=== PATIENT | male | born 1970 | race African-American/Black ===

== ENCOUNTER 2017-09-07 00:03 | Inpatient (IN) | payer MEDICAID, OTHER ==
[2017-09-07 00:31] LABS: Sodium 134 mmol/L (135-148)
[2017-09-07 00:32] LABS: Modified Allen's Test POSITIVE; Vent NO
[2017-09-07] MEDS ORDERED: Naloxone HCl 2 mg/2 ml Syringe ONE (01:22)
[2017-09-07 01:38] LABS: PTT 41.5 SEC (22.9-36.1); Prothrombin Time 19.1 SEC (12.0-14.7)
[2017-09-07 01:51] LABS: CK (CPK) 25 U/L (30-200); Lipase 37 U/L (8-78)
[2017-09-07 01:55] LABS: Troponin I 0.049 ng/mL (< 0.028)
[2017-09-07 02:01] LABS: Hematocrit 8.6 % (42.0-52.0)
[2017-09-07 02:07] LABS: Lactic Acid - Sepsis 8.8 mmol/L (0.5-2.2)
[2017-09-07 02:12] LABS: ALT (SGPT) Less than 7 U/L (8-55); AST (SGOT) 10 U/L (5-34); Acetaminophen Less than 6.0 mcg/mL (10.0-30.0); Alkaline Phosphatase 84 U/L (40-150); Anion Gap 23 mmol/L (10-20); BUN (Urea Nitrogen) 62 mg/dL (8.9-20.6); Bilirubin, Total 0.3 mg/dL (0.2-1.2); Calc. Creatinine Clearance 0 mL/min (70-130); Calcium 7.2 mg/dL (7.8-10.44); Carbon Dioxide 15 mmol/L (22-29); Chloride 101 mmol/L (98-107); Estimated GFR-MDRD 11; Globulin 3.4 g/dL (2.4-3.5); Protein, Total 5.2 g/dL (6.0-8.3); Salicylate Less than 8.0 mg/dL (15.0-30.0)
[2017-09-07 02:34] LABS: Band 8 % (5-11); Hypochromia MODERATE=16-30 cells (100X) (0-5/hpf); Mean Platelet Volume 8.5 fL (7.4-10.4); Neutrophil 69 % (42-75); Red Blood Cell (RBC) Count 1.12 mill/uL (4.70-6.10); White Blood Cell (WBC) Count 10.6 thou/uL (4.8-10.8)
[2017-09-07] MEDS ORDERED: Furosemide 40 MG/4 ML VIAL ONE (03:20)
[2017-09-07] MEDS ORDERED: Ondansetron ODT 4 MG TAB SL PRN (04:01)
[2017-09-07] MEDS ORDERED: Ondansetron HCl/PF 4 MG/2 ML Vial IVP PRN ×2 (04:01→04:36)
[2017-09-07] MEDS ORDERED: Acetaminophen 500 MG TAB PO PRN (04:36)
[2017-09-07] MEDS ORDERED: hydrALAZINE 20 MG/ML VIAL SLOW IVP PRN (04:36)
[2017-09-07] MEDS ORDERED: cloNIDine 0.1 MG TAB PO PRN (04:36)
[2017-09-07 05:20] VITALS: BMI 27.4
[2017-09-07 05:44] LABS: Lactic Acid - Sepsis 6.2 mmol/L (0.5-2.2)
[2017-09-07 05:49] LABS: Anion Gap 23 mmol/L (10-20); BUN (Urea Nitrogen) 64 mg/dL (8.9-20.6); Calc. Creatinine Clearance 16 mL/min (70-130); Calcium 7.1 mg/dL (7.8-10.44); Carbon Dioxide 15 mmol/L (22-29); Chloride 101 mmol/L (98-107); Estimated GFR-MDRD 11
[2017-09-07 06:38] LABS: Hematocrit 12.2 % (42.0-52.0); Mean Platelet Volume 9.1 fL (7.4-10.4); Red Blood Cell (RBC) Count 1.51 mill/uL (4.70-6.10); White Blood Cell (WBC) Count 9.2 thou/uL (4.8-10.8)
--- NOTE | 2017-09-07 06:40 | HP ---
DATE OF ADMISSION: 09/07/2017 PRIMARY CARE PHYSICIAN: [facility]. PRIMARY HEMATOLOGY TECHNICIAN: Dr. Augusta Coates. CHIEF COMPLAINT: Altered mental status. HISTORY OF PRESENT ILLNESS: This is a 47-year-old male who presents to [facility] after apparently family noted that the patient with altered mentation. Joby cam apparently woke up from sleeping for approximately 2320 hours with associated weakness and garble d speech. Patient and family members became concerned, notifying EMS personnel who arrived and note d the patient's blood pressure 90s/60s. Patient also has a significant history of status post ingui nal hernia repair on 08/15/2017, with some bleeding noted in the genitourinary region. Patient appa rently had noted increased swelling and worsening of bleeding, which previously had been hemostatic. The patient states he has been compliant with his dialysis sessions as he currently attends on Sun, Sunday, and Sunday. Patient denied any specific fever, chills, or exposure history. Anita vaca did not take any specific home remedies for his symptoms. In the emergency room, the patient unde rwent general evaluation receiving IV Lasix 80 mg x1 in addition to 1 unit of packed red blood cells after initial hemoglobin was noted at 2.5. The patient also received 2 mg Narcan and intravenous n ormal saline x1 liter. PAST MEDICAL HISTORY: 1. End-stage renal disease with current hemodialysis. 2. Medication noncompliance. 3. History of illicit drug use. 4. History of inguinal hernia. 5. Hypertension. 6. Chronic systolic and diastolic congestive heart failure with ejection fraction of 40% to 45%. 7. History of pneumonia. 8. Elevated troponin I. 9. Chronic microcytic anemia. PAST SURGICAL HISTORY: 1. Status post AV fistula placement. 2. Status post bilateral inguinal hernia repair on 08/15/2017. CURRENT MEDICATIONS: 1. Enteric coated aspirin 81 mg one tablet p.o. daily. 2. Ferrous sulfate 325 mg p.o. b.i.d. 3. Isosorbide mononitrate 30 mg p.o. daily. 4. Amlodipine 5 mg one tablet p.o. b.i.d. 5. Hydralazine 25 mg p.o. t.i.d. ALLERGIES: To tea. FAMILY HISTORY: Positive for hypertension. SOCIAL HISTORY: Patient with longstanding abuse of cocaine. Smokes cigarettes up to half a pack da shakir. No other illicit drug use noted. Occasional alcohol use. Patient resides in [place], [place]. REVIEW OF SYSTEMS: Unobtainable as patient with altered mentation and encephalopathy, unable to pro vide a coherent history. PHYSICAL EXAMINATION: VITAL SIGNS: On admission, blood pressure 83/57, pulse 84, respiratory rate 20, temperature 97.4 de grees Fahrenheit, O2 saturation 96% on 2 liters per minute by nasal cannula. GENERAL APPEARANCE: This is a 47-year-old male, lethargic, responds with garbled s peech to name and voice. HEENT EXAM: Pupils are equal, round, and reactive to light and accommodation. Extraocular muscles are intact. No scleral icterus, no conjunctival injection. Nares patent. OP is clear. Oral mucos a is dry appearing. NECK: Supple, no cervical adenopathy, no thyromegaly, no carotid bruits, no JVD appreciated. Cervi calli spine with full active and passive range of motion. CHEST: Diminished breath sounds in the bases bilaterally with transmitted central breath sounds per ipherally. CARDIOVASCULAR EXAM: S1 and S2 with tachycardia. ABDOMEN: Rounded, soft, nontender, and nondistended. Bowel sounds are positive in all four quadran ts. There is no hepatosplenomegaly, no abdominal bruits, no rebound or guarding appreciated. GENITOURINARY: Massive scrotal edema noted with loss of anatomical landmarks. EXTREMITIES: Warm and dry with fair turgor. No clubbing, cyanosis, or asymmetric edema appreciated . Pulses palpable distally at the dorsalis pedis, posterior tibial, and popliteal arteries bilatera lly. Capillary refill less than 2 seconds. NEUROLOGIC EXAM: Lethargic, minimally responsive to painful stimuli or voice. Garbled and dysarthr ic speech. Not observed ambulatory during this exam. PERTINENT LABORATORY DATA AND X-RAY FINDINGS: Sodium 135, potassium 4.2, chloride 101, CO2 of 15, a nion gap of 23, BUN 62, creatinine 6.91, estimated GFR of 11, glucose 103, lactic acid level 8.8, ca lcium 7.2. LFTs within normal limits. Serum ammonia level 79. Troponin I is 0.049. BNP is 4157, previously noted 1719. TSH 0.72. CBC showed a white blood cell count 7.6, hemoglobin 2.5, hematocr it 8.6, MCV 77, platelet count 308 with normal differential. PT 19.1, INR 1.6, PTT 41.5. ABG dated on 09/07/2017, showed a pH of 7.47, pCO2 of 20.8, pO2 of 118.3, bicarbonate 14.7 with O2 saturation 99% on room air. Telemetry monitoring shows sinus tachycardia with heart rates in the low 100s. C T of the brain without contrast dated on 09/07/2017, shows no acute intracranial process. Portable chest x-ray dated on 09/07/2017, by my interpretation shows prominent pulmonary vascular congestion. Cardiomegaly, AP projection. Tunneled hemodialysis catheter in place. No acute infiltrate identi fied. ASSESSMENT AND PLAN: 1. Acute encephalopathy. Suspect multifactorial including metabolic component with acute on chroni c microcytic anemia. Multiple metabolic derangements also noted including lactic acidosis hyperammo nemia and severe acute blood loss. We will continue symptomatic and supportive measures. Continue to monitor the mental status with daily assessment. 2. Acute on chronic microcytic anemia with acute blood loss. We will continue supportive measures. Transfuse 1 unit of packed red blood cells and repeat hemoglobin and hematocrit after completion. Consult General Surgery Service in the a.m. for evaluation. 3. Severe hypotension. We will continue to monitor blood pressure, trend and hold all antihyperten sive medications. Continue fluid management and monitor clinically. Overall, blood pressure trend improved with packed red blood cell transfusion x1. 4. End-stage renal disease with hemodialysis. We will consult Nephrology service for timing of the next hemodialysis session. 5. Scrotal hematoma. We will consult General Surgery Service in the a.m. for evaluation. Obtain t esticular ultrasound with Doppler study. 6. Lactic acidosis. Suspect secondarily to acute blood loss anemia and underlying metabolic proces s. Repeat lactic acid level per protocol. 7. Polysubstance abuse. We will continue to provide resources for abstinence. Consult case manage ment services. 8. Prophylaxis. Sequential compression devices while in bed. 9. Pepcid 20 mg IV every 12 hours. Consider PT evaluation for functional assessment. 10. Code status is FULL. Surrogate medical decision maker is the patient's mother.
[2017-09-07] MEDS ORDERED: Pantoprazole 40 MG VIAL IVP SCH (07:00)
[2017-09-07 07:10] LABS: Band 12 % (5-11); Hypochromia SLIGHT = 6-15 cells (100X) (0-5/hpf); Metamyelocyte 1 % (0-0); Myelocyte 1 % (0-0); Neutrophil 65 % (42-75); Nucleated RBC 1 % (0); Polychromasia MODERATE = 3-4 cells (100X) (0-2/hpf)
--- NOTE | 2017-09-07 07:41 | CT ---
PRELIMINARY REPORT/[facility]/EMERGENCY AFTER HOURS PROCEDURE: EXAM: CT Head Without Intravenous Contrast CLINICAL HISTORY: 47 years old, male; Signs and symptoms; Altered mental status/memory loss; Confusion or disorientati on; Patient HX: AMS TECHNIQUE: Axial computed tomography images of the head/brain without intravenous contrast. COMPARISON: No relevant prior studies available. FINDINGS: Brain: No acute findings. No hemorrhage. No significant white matter disease. No edema. Ventricles: No acute findings. No ventriculomegaly. Bones/joints: No acute findings. No acute fracture. Soft tissues: No acute findings. Sinuses: Unremarkable as visualized. No acute sinusitis. Mastoid air cells: Unremarkable as visualized. No mastoid effusion. IMPRESSION: No acute intracranial pathology. Thank you for allowing us to participate in the care of your patient. Dictated and Authenticated by: Zain Simpson MD 09/07/2017 2:46 AM Central Time ([place] \T\ [place]) FINAL REPORT CT BRAIN WITHOUT CONTRAST I agree with the preliminary report given by Dr. Zain Simpson of [facility]. POS: [facility]
--- NOTE | 2017-09-07 08:32 | RAD ---
SINGLE VIEW OF THE CHEST: HISTORY: Central line placement. COMPARISON: 09/07/2017 at 12:26 a.m. FINDINGS: A single view of the chest shows an enlarged but stable cardiomediastinal silhouette. A new right I J central venous catheter is seen with its tip in the right ventricle. The dialysis catheter is unc hanged in position. There is no evidence of pneumothorax, consolidation, mass, or pleural effusion. IMPRESSION: 1. Cardiomegaly. 2. Status post central line placement without evidence of pneumothorax. POS: [facility]
--- NOTE | 2017-09-07 08:33 | RAD ---
SINGLE VIEW OF THE CHEST: HISTORY: Altered mental status and hemorrhage. COMPARISON: 08/15/2016 FINDINGS: A single view of the chest shows an enlarged cardiomediastinal silhouette. There is a dialysis cath eter with its tip in the superior vena cava. No pneumothorax is seen. There is no evidence of cons olidation, mass, or pleural effusion. IMPRESSION: 1. Cardiomegaly. 2. Dialysis catheter placement without evidence of complication. POS: [facility]
--- NOTE | 2017-09-07 08:34 | RAD ---
SINGLE VIEW OF THE CHEST: HISTORY: Altered mental status. COMPARISON: 09/07/2017 FINDINGS: A single view of the chest shows an enlarged but stable cardiomediastinal silhouette. The central v enous catheter has been withdrawn, with its tip in the superior vena cava. The dialysis catheter is also in the superior vena cava. There is no evidence of consolidation, mass, or pleural effusion. IMPRESSION: 1. Withdrawal of central venous catheter with appropriate position of the tip of the central venous catheter. 2. Cardiomegaly. POS: [facility]
[2017-09-07] MEDS ORDERED: FLU VACC QS2017-18 36 mo. & older 0.5 ML SYRINGE IM ONE (09:00)
[2017-09-07] MEDS ORDERED: Famotidine/PF 20 mg/2ml Vial SLOW IVP SCH (09:00)
--- NOTE | 2017-09-07 10:04 | ULT ---
BILATERAL TESTICULAR ULTRASOUND: COMPARISON: None. HISTORY: Large scrotal swelling and pain. The patient reports having prior hernia repair. TECHNIQUE: Multiplanar griggs scale and color Doppler images were obtained in a testicular/scrotal ultrasound. S pectral analysis with Doppler waveforms of the right testicular was performed. FINDINGS: There are complex bilateral hydroceles containing septations in the inferior aspect of both sides of the scrotum. The right testicle was identified more superiorly. The left testicle could not be id entified. There is also peristalsing bowel in each side of the scrotum which likely represents resi dual inguinal hernias. IMPRESSION: 1. Complex bilateral hydroceles. 2. Bilateral inguinal hernias. A CT of the pelvis would better assess the extent of the hernias. POS: [facility]
[2017-09-07 10:24] LABS: IRF 0.707 Ratio (0.163-0.362); Reticulocyte Count 3.5 % (0.5-1.5)
[2017-09-07] MEDS ORDERED: Heparin 1,000 UNITS/ML VIAL ONE (11:11)
--- NOTE | 2017-09-07 11:50 | PQF ---
BERNARDO NAZARIOYANI DO [id number] CLINICAL DOCUMENTATION IMPROVEMENT CLARIFICATION FORM: ICD-10 Updated PLEASE DO AN ADDENDUM TO THE PROGRESS NOTE WITH ANY DOCUMENTATION UPDATES OR ADDITIONS AND CARRY THROUGH TO DC SUMMARY. THANK YOU. DATE: 09-07-17 ATTN: DR. MCALLISTER Please exercise your independent, professional judgment in responding to the clarification form. Clinical indicators are provided on the bottom of this form for your review Please check appropriate box(s): [ x ] Shock (please further specify type): [ x ] Hypovolemic [ ] Cardiogenic [ ] Hemorrhagic due to: [ ] Trauma [ ] Surgery [ ] Shock Unspecified [ ] Other diagnosis [ ] Unable to determine In addition, please specify: Present on Admission (POA): [ x ] Yes [ ] No [ ] Unable to determine For continuity of documentation, please document condition throughout progress notes and discharge summary. Thank You. CLINICAL INDICATORS - SIGNS / SYMPTOMS / LABS ER: HYPOVOLEMIC SHOCK H&P: AMS / ENCEPHALOPATHY; SEVERE HYPOTENSION ; ACUTE ON CHRONIC BLD LOSS ANEMIA LACTIC ACIDOSIS 09-07 @ 0114 8.8 10 @ 0516 6.2 LABS: HEMOGLOBIN 09-07 @ 0114 2.5 HEMATOCRIT 8.6 @ 0517 3.9 12.2 TROPONIN I 09-07 @ 0114 0.049 LACTIC ACID 09-07 @ 0114 8.8 10 @ 0516 6.2 ER: BP @ 0056 87/48 @ 0245 84/60 RISK FACTORS H&P: S/P INGUINAL HERNIA REPAIR 08-15-17 MASSIVE SCROTAL EDEMA ACUTE ON CHRONIC BLOOD LOSS ANEMIA TREATMENTS: CPOE - CCU MONITORING 4 UNITS PRBC 09-07-17 SERIAL CBC 1 LITER NS IN ER THANK YOU, JANNIE (This form is maintained as a part of the permanent medical record) 2015 [employer]. All Rights Reserved Jannie Mckeon RN, BS [email or web address]
--- NOTE | 2017-09-07 12:23 | CON ---
DATE OF SERVICE: 09/07/2017 SERVICE: Pulmonary Medicine HISTORY OF PRESENT ILLNESS: The patient is a 47-year-old male with past medical history significant for end-stage renal disease. He started having increasing dyspnea with exertion, and confusion. He presented to the emergency department with marginal blood pressures. Hemoglobin was found to be 2.5. He was given a unit of blood overnight. This morning, he is getting dialysis and will receive an additional 3 units of blood. He currently denies any nausea. He has been vomiting for 1 day. This was some coffee ground emesis. He has a very enlarged scrotum. He indicates that this was present prior to his recent surgery which was a bilateral inguinal hernia repair that was performed on 08/15/2017. That being said, at that time, he had a near normal hemoglobin. PAST MEDICAL HISTORY: 1. End-stage renal disease. 2. Polysubstance drug abuse including cocaine. 3. Hypertension. 4. Chronic systolic and diastolic heart failure. 5. History of medical noncompliance. 6. Microcytic anemia, chronic. PAST SURGICAL HISTORY: 1. AV fistula placement. 2. Bilateral inguinal hernia repair in late July 2017. ALLERGIES: No known drug allergies. FAMILY HISTORY: Noncontributory. SOCIAL HISTORY: He uses cocaine and smokes cigarettes. He does half a pack per day and has a [id number] history of smoking. He denies any significant alcohol use. He lives in [place], [place] and has no exposure to chemicals, dust, asbestos or tuberculosis. MEDICATIONS: List of inpatient medications were reviewed. No specific updates were made at this time. REVIEW OF SYSTEMS: General, head, ears, eyes, nose, throat, cardiovascular, respiratory, GI, , musculoskeletal, neurologic and skin is negative except as mentioned in the HPI. PHYSICAL EXAMINATION: VITAL SIGNS: Afebrile, pulse 87, blood pressure 111/80, respirations 25, saturation 100% on 2 liters nasal cannula. GENERAL: The patient is awake and alert at this time. He has no apparent distress. LUNGS: Excellent air entry. There is no prolonged expiratory phase. I appreciate no wheezing, rhonchi or crackles. HEART: Normal rate, regular. ABDOMEN: Soft. Nontender, nondistended. Bowel sounds are positive. MUSCULOSKELETAL: No cyanosis or clubbing. There is diffuse 1-2+ pitting in the bilateral lower extremities. GENITOURINARY: He has a massive scrotal swelling. It is roughly the size of a cantaloupe. LABORATORY DATA: WBC 9.2, hemoglobin 3.9, up from 2.5. Platelets 298,000. INR 1.6, pH 7.47, pCO2 21, pO2 118. Lactate has trended down to 1.8 from 8.8. Creatinine 6.9, BUN 64. Basic metabolic profile is otherwise unremarkable. Liver function studies are unremarkable. Toxicology is negative for salicylates , acetaminophen, and alcohol. IMAGIN. Chest x-ray demonstrates no acute cardiopulmonary abnormality. There is cardiomegaly. Central line is in good position. 2. CT of the brain demonstrates no acute intracranial abnormality. 3. Testicular ultrasound is currently pending. ASSESSMENT: 1. Acute blood loss anemia. 2. Metabolic encephalopathy. 3. Coagulopathy. 4. Scrotal swelling. 5. Recent surgery. PLAN: He has only been vomiting coffee ground emesis for 1 day. I agree with GI consultation, but I am not certain if this is where blood is going. I don't believe he lost 5 units of blood in the GI tract. The patient will get 3 units of blood today. We will repeat hemoglobin afterwards. If we do not find any obvious evidence of what was bleeding, a CT of the abdomen and pelvis will be performed. We will follow up on the results of a testicular ultrasound. consultation will be placed. Pulmonary Critical Care will continue to follow while the patient remains in the ICU for at least the next 24 hours. MARIANO
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
--- NOTE | 2017-09-07 15:01 | CON ---
DATE OF CONSULTATION: 09/07/2017 REQUESTING PHYSICIAN: Dr. Rajiv Silva. HISTORY OF PRESENT ILLNESS: This is a 47-year-old man with a history of end-stage renal disease, on hemodialysis. The patient is approximately 3 weeks status post bilateral inguinal herniorrhaphy through a midline abdominal incision. The patient was brought to the emergency depar tment close to midnight by family, who reported patient with altered mental status. At that time, h e was found with hypotension and workup revealed a hemoglobin of 2.5. The patient reports some vagu e abdominal pain, duration unknown. He reports some bleeding from skin tear associated with his enl arged scrotum. He denies any hematochezia or melena. Denies any hematemesis. PAST MEDICAL HISTORY: Significant for end-stage renal disease, currently on 3 days weekly hemodialy sis. Other pertinent past medical history includes essential hypertension and chronic congestive he art failure. PAST SURGICAL HISTORY: Pertinent for AV fistula for hemodialysis access as well as most recent bila teral inguinal herniorrhaphy, history of midline abdominal incision. SOCIAL HISTORY: The patient reports occasional use of ethanol in moderate amounts. He smokes half a pack of cigarettes per day and has done so for over 10 years and he abuses cocaine. FAMILY HISTORY: Notable for essential hypertension according to records. ALLERGIES: Patient has no known drug allergies. REVIEW OF SYSTEMS: Could not be obtained, patient's mental status is altered and his Sammy coma s elvira currently is at E3 M6 V3. PHYSICAL EXAMINATION: GENERAL: This reveals a 47-year-old -[place]izen [place] man, who is confused, but interactive. He chayo ears to be in no acute distress at the time of my evaluation. VITAL SIGNS: Includes blood pressure 123/85, pulse is 85, respiratory rate is 21, maximum temperatu re since this admission is 98.1 degrees Fahrenheit, oxygen saturation is 100% on 2 liters by nasal c annula oxygen. HEENT: Examination reveals normocephalic and atraumatic. Pupils equal, round, and reactive to ligh t and accommodation. His extraocular muscles are intact bilaterally. He has no jugular venous dist ention noted. HEART: Reveals regular rate and rhythm, no murmurs or gallops auscultated. LUNGS: Reveals scattered rhonchi. Breathing is otherwise regular and unlabored. ABDOMEN: Soft and protuberant with mild tenderness to palpation, which is not localized. He has no gross rebound tenderness present. GENITOURINARY: Examination reveals markedly edematous scrotum. There is excoriation of the scrotal skin. No active bleeding noted. There is minimal tenderness with manipulation of the scrotum. Hi s penile skin is tactile due to the massive scrotal edema. NEUROLOGIC: Examination reveals no focal deficits present. PERTINENT LABORATORY FINDINGS: Today include CBC, which is post-transfusion of 1 unit of packed red blood cells, white blood cell count 9200, hemoglobin 3.9, hematocrit 12.2, platelet count is 298,00 0. The patient is receiving 3 units of packed red blood cells during dialysis, which is active at t he time of this visit. Metabolic profile: Sodium 135, potassium is 4.3, chloride is 101, bicarbona te 15, BUN 64, creatinine is 6.90, glucose 111. Testicular ultrasound today reveals marked scrotal edema with a complex hydroceles as well as peristaltic structures within the scrotum consistent with bowel. IMPRESSION: 1. Massive scrotal edema, likely secondary to persistent or recurrent inguinal hernia. 2. Acute blood loss anemia with indeterminate etiology of blood loss. 3. End-stage renal disease, dialysis dependent. RECOMMENDATIONS: 1. Blood transfusion while attempt is made to rule out retroperitoneal source of the hemorrhage. 2. CT scan of the abdomen and pelvis has been ordered and it will be reviewed. There is no acute s urgical indication for this patient at this time. 3. I await the CT scan of the abdomen and pelvis and make further recommendations as necessary. Thank you again, Dr. Silva for allowing me the opportunity to participate in the care of this patient .
[2017-09-07 15:06] LABS: Hematocrit 23.3 % (42.0-52.0)
[2017-09-07] MEDS ORDERED: ISOVUE-370 76%-LOCM 1 ML ONE (16:01)
--- NOTE | 2017-09-07 16:42 | CT ---
CT ABDOMEN AND PELVIS WITH IV CONTRAST: Date: 09/07/17 HISTORY: 47-year-old male with recent hernia repair surgery. Anemia. Concern for retroperitoneal hemorrhage. FINDINGS: There are mild dependent changes in the left lung base. A small hiatal hernia is present. The liver, spleen, pancreas, and adrenal glands are normal. There is decreased enhancement of the kidneys, lik javan due to patient's renal insufficiency. No calcified gallstones are seen. No free air is seen. The re is a small amount of free fluid in the abdomen. There is a 4.0 x 2.5 x 5.0 cm fluid collection in the right lower quadrant anterior to the cecum. There is fluid extending superomedially in the midl ine without significant loculation. There is a 3.8 cm fluid collection that is slightly higher densi ty posterior to the bladder and anterior to the sigmoid. These could represent blood products. There is a large left inguinoscrotal hernia containing loops of small and large bowel. In the inguin oscrotal hernia, there is a 9.0 x 7.0 x 7.5 cm fluid collection laterally and smaller partially locu lated fluid collection medially. A small amount of free fluid is seen in the hernia sac. The bowel l oops are not abnormally dilated. No periaortic hemorrhage is seen. There are mild degenerative montes de oca es in the spine. There are postop changes involving the bowel and the right lower quadrant. IMPRESSION: Fluid collections in the right lower quadrant, pelvis, and the left inguinoscrotal hernia sac. Of th siena, the pelvic collection has increased density and may represent blood products. Findings discussed over the telephone with Dr. Alexandr Villanueva at 1530 hours. CODE CR. POS: [facility]
[2017-09-07] MEDS: Pantoprazole 40 MG VIAL IVP SCH (20:29)
[2017-09-08 04:46] LABS: Anion Gap 16 mmol/L (10-20); BUN (Urea Nitrogen) 51 mg/dL (8.9-20.6); Calc. Creatinine Clearance 19 mL/min (70-130); Calcium 7.9 mg/dL (7.8-10.44); Carbon Dioxide 25 mmol/L (22-29); Chloride 100 mmol/L (98-107); Estimated GFR-MDRD 13
[2017-09-08 04:49] LABS: Anisocytosis MODERATE=16-30 cells (100X) (0-5/hpf); Band 4 % (5-11); Hematocrit 22.6 % (42.0-52.0); Hypochromia MODERATE=16-30 cells (100X) (0-5/hpf); Mean Platelet Volume 10.1 fL (7.4-10.4); Microcytosis SLIGHT = 6-15 cells (100X) (0-5/hpf); Neutrophil 83 % (42-75); Red Blood Cell (RBC) Count 2.78 mill/uL (4.70-6.10); White Blood Cell (WBC) Count 12.9 thou/uL (4.8-10.8)
--- NOTE | 2017-09-08 08:00 | CON ---
DATE OF CONSULTATION: 09/07/2017 CONSULTING PHYSICIAN: Augusta Coates M.D. REQUESTING PHYSICIAN: ER physician. REASON FOR CONSULTATION: Need for hemodialysis in a patient with end-stage renal disease. IMPRESSION: 1. End-stage renal disease, hemodialysis dependent, with questionable compliance. 2. Severe anemia of multifactorial etiology. 3. Hypervolemia in the context of end-stage renal disease from nephrotic syndrome. 4. Medical noncompliance. PLAN: 1. Transfuse this patient with 1 unit of blood and arrange for subsequent 3 units to be given durin g dialysis. 2. Counseling on the need to stay compliant. 3. Hemodynamic support and monitor the hemoglobin and transfuse on a p.r.n. basis. 4. Further recommendation . 5. Patient has severe anemia. We will continue with erythropoiesis stimulating agent. HISTORY OF PRESENT ILLNESS: A 47-year-old gentleman with end-stage renal disease, on hemodialysis M , Sunday, and Sunday, who used to weigh about 264 pounds due to severe anasarca from nephrot ic syndrome, started on dialysis, has lost most of these weight. Patient recently did undergo abdom inal surgery due to incarcerated and strangulated hernia. Patient has been recuperating from this s urgery. They noted scrotal bleeding, possibly from congestion due to gross ascites and friction of the scrotal wall with the . In any case, the patient presented here having altered mental stat us and noted with severe anemia, hemoglobin of 2.5. Patient also noted to be severely fluid overloa ded. As a result of these findings, decision was taken to involve Renal in the management of this c ase. PAST MEDICAL HISTORY: Significant for end-stage renal disease, hemodialysis dependent, nephrotic sy ndrome, noncompliance, substance abuse with cocaine, systolic congestive heart failure. MEDICATIONS: Reviewed and as documented on [facility]. ALLERGIES: No known drug allergies. FAMILY HISTORY: None significantly related to the presenting illness. SOCIAL HISTORY: Significant for tobacco and cocaine usage. Denies alcohol abuse. MEDICATIONS: Medications have been reviewed as documented on [facility]. REVIEW OF SYSTEMS: As documented in the body of the history. All the other systems reviewed and we re found not to be significantly related to the presenting illness. PHYSICAL EXAMINATION: GENERAL: The patient was found to be ill looking, arousable, but somewhat restless. VITAL SIGNS: Blood pressure 127/72, pulse of 97, O2 sat of 96%. HEENT: Unremarkable. CARDIOVASCULAR: First and second heart sounds were heard. RESPIRATORY: Clear to auscultation anteriorly. DIGESTIVE: Revealed an obese abdomen. EXTREMITIES: Showed some peripheral pitting edema. NEUROLOGIC: Arousable, somewhat confused, but somewhat restless also, but no lateralizing sign. SUMMARY: A 47-year-old gentleman who presented here with severe symptomatic anemia with history of end-stage renal disease. Thank you for this consultation. We will follow with you.
[2017-09-08] MEDS: Pantoprazole 40 MG VIAL IVP SCH ×2 (09:23→21:14)
--- NOTE | 2017-09-08 11:24 | PRG ---
DATE OF SERVICE: 09/08/2017 SERVICE: Pulmonary Medicine. INTERVAL HISTORY: The patient is doing fantastic from a respiratory standpoint. He remains tachyca rdic. Otherwise, he has returned to his usual state of health. He continues to have back spasms, b ut this is a chronic feature for him. There has been no interval change to his condition. Overnigh t, he had a CT of the belly which demonstrated blood products in his belly. This is a likely source associated with the recent operation. PHYSICAL EXAMINATION: VITAL SIGNS: Afebrile, pulse 113, blood pressure 135/78, respirations 17, and saturation 100% on ro om air. GENERAL: Patient is awake, alert, no apparent distress. LUNGS: Decent air entry. There is no prolonged expiratory phase, wheezing, rhonchi or crackles. HEART: Normal rate, regular. ABDOMEN: Soft, nontender, and nondistended. Bowel sounds positive. MUSCULOSKELETAL: No cyanosis or clubbing. There is no pitting in the bilateral lower extremities. NEUROLOGIC: Grossly nonfocal. LABORATORY DATA: WBC 12.9, hemoglobin 7.5 and roughly stable compared to last night. Platelets 221 ,000. Creatinine 5.84. Basic metabolic profile is otherwise unremarkable. BUN is down trending to 51. LDH 368. Lactate has cleared to 1.8. ASSESSMENT: 1. Acute blood loss anemia. 2. Metabolic encephalopathy, resolved. 3. Intraabdominal hemorrhage secondary to recent surgery. 4. End-stage renal disease. PLAN: We will continue to trend the hemoglobins through time. We will transfuse as needed in order to maintain hemoglobin levels greater than 7. If he continues to trend downward, FFP, and DDAVP wi ll be given. Pulmonary or Critical Care will continue to follow while he remains inhouse. Because of his relative tachycardia, we will hold onto him for one additional day.
[2017-09-08] MEDS: Ondansetron ODT 4 MG TAB PO PRN ×2 (13:24→21:16)
--- NOTE | 2017-09-08 14:38 | EKG ---
Test Reason : Blood Pressure : / mmHG Vent. Rate : 082 BPM Atrial Rate : 082 BPM P-R Int : 142 ms QRS Dur : 080 ms QT Int : 416 ms P-R-T Axes : 048 057 028 degrees QTc Int : 486 ms Normal sinus rhythm Possible Left atrial enlargement Anterior infarct , age undetermined Abnormal ECG Confirmed by CHRISTA CHAU, DOMINGA ([id number]), film or videotape editor SILVESTRE NORTON ([id number]) on 09/08/2017 2:38:01 PM Referred By: Confirmed By:DOMINGA GOODWIN MD
--- NOTE | 2017-09-08 15:59 | PRG ---
DATE OF SERVICE: 09/08/2017 SUBJECTIVE: Mr. Stallings is without complaints. Nurses note they see no overt bleeding. His CAT sca n yesterday showed some fluid collections in the abdomen and also in the scrotal sac and a large alison unt of intestine in the scrotal sac. Dr. Parra talked to the patient's surgeon at the [facility] and there was a ventral hernia that was operated on. Dr. Parra feels that there i s no need for surgery with regard to the patient's inguinal hernia at this time. Apparently, that w as not operated because the patient had a history orchiectomy in the past. The patient is still eliana rly somnolent, but is arousable when we talk. He is starting to eat. OBJECTIVE: VITAL SIGNS: Pulse 113, blood pressure 155/84, respirations 18, temperature is 98.9. ABDOMEN: Soft, nontender, slightly protuberant. EXTREMITIES: No clubbing, cyanosis or edema. GENITOURINARY: He has enlarged scrotum. LABORATORY DATA: White count 12, hemoglobin 7.5, platelet count 221, BUN and creatinine are 51 and 5.8. ASSESSMENT: 1. End-stage renal disease. 2. Chronic cocaine abuse, ongoing. 3. Recent ventral hernia surgery. 4. Recent admission for acute anemia with hemoglobin of 2.5 on admission with baseline hemoglobin o f 7.8 on 08/16/2017. The source of blood loss is unclear, it may have been related to surgery. He did have some bleeding from his scrotal area according to the family. He has also had some CT scan findings suggestive of fluid in the abdomen, some of which may be blood, but 3 to 4 units of blood w as not seen. 5. History of hematemesis. 6. Intestine in his scrotal hernia with no signs of overt infarction or incarceration, although thi s is nonreducible. Surgery is elected to defer this repair to his primary surgeon at the hospital w hen he recovers. RECOMMENDATIONS: 1. Continue IV PPI. 2. EGD tomorrow. 3. Colonoscopy is not feasible at this time or warranted I think because of his with this large her joanne, it is unclear if this is all small bowel or whether some colon in the hernia, fearful that atte mpts with bowel prep may cause further problems with the hernia cause to incarcerate, so for now unl ess there is overt bleeding, we will hold off on that. In any event, he only showed signs of coffee -ground emesis on admission and no lower GI bleeding, although that may need to be addressed at a la ter date once hernia is repaired.
--- NOTE | 2017-09-08 16:00 | PRG ---
DATE OF SERVICE: 09/08/2017 SUBJECTIVE: The patient was seen and examined at the bedside. He is in ICU bed, C10. He is gettin g dialysis during my visit. His complains about some spasms in his back, but otherwise he is feelin g better. OBJECTIVE: VITAL SIGNS: Blood pressure is 138/81, pulse is 117, respiratory rate is 18, and O2 saturation is 9 9%. HEENT: His head is atraumatic, normocephalic. Eyes are PERRLA. Pupils are responding to light pro perly. Conjunctivae palish. Oral mucosa is moist. NECK: Supple, no JVD. LUNGS: Breath sounds slightly diminished at both bases. No crackles, rales, or wheezing. HEART: S1, S2, tachycardic. No S3, no S4. Precordium hyperdynamic. ABDOMEN: Midline incision is healing quite well. Bowel sounds are present. There is some mild gen eralized discomfort during my palpation of the abdomen. Scrotum is very enlarged, approximately 20 cm x 15 cm in size, not tender to touch. EXTREMITIES: 1+ peripheral edema similar bilaterally around the ankles. NEUROLOGIC: He is alert and oriented x4. There are no any motor or sensory deficits. Cranial nerv es are intact. SKIN: No rash or erythema. LABORATORY DATA: Showed white count of 12.9, hemoglobin 7.5, hematocrit 22.6, platelet count is 221 ,000, 83% of neutrophils. Sodium of 137, potassium 3.9, chloride 100, CO2 of 25, anion gap 16, BUN 51, creatinine 5.84, glucose 134, calcium 7.9. Microbiology: Blood cultures x2 no growth so far. Gastric occult blood positive. IMPRESSION: 1. Encephalopathy, most likely metabolic, since improved after patient's general condition improved after transfusion of several packed red blood cells units. 2. Severe anemia with some evidence of blood loss in the abdomen suggestive of postop bleeding. Th e patient recently had operation done by Dr. Ochoa at the [facility] in [place]. There is a chr onic component to this anemia, apparently his baseline hemoglobin level is around 8. 3. Severe hypotension related to significant volume loss secondary to bleeding, but this improved w ith transfusion of several packed red blood cell units. 4. End-stage renal disease on hemodialysis. The patient had dialysis last night and is getting dee dee lysis as we speak. 5. Lactic acidosis secondary to again volume loss and anemia improved. 6. Polysubstance abuse based on the previous screening testing for drugs, although during this admi ssion, he was not tested for cocaine. PLAN: The patient is going to stay in the Intensive Care Unit since he is still tachycardic. We wi ll follow up on his H and H, blood pressure, and pulse closely. The patient was seen by Dr. Fidel cheatham or General Surgery consultation, who is in the continuous process of evaluating the current situatio n. It does not look like the patient is actively bleeding at this point. A CT scan of the abdomen and pelvis showed some blood in the right lower quadrant, also there is a large left inguinal sacral hernia containing loops of small and large bowel and there is a fluid collection 9 x 7 x 7.5 latera lly and smaller partially loculated fluid collection medially. We are going to hold all his home me dications since all of them will lower the blood pressure. Also, we are going to hold on his aspiri n since he has some signs of recent bleeding, maybe he is still losing a small amount of blood. We will continue his SCDs for deep venous thrombosis prophylaxis and no pharmacological prophylaxis sin ce he is having some evidence of some blood loss.
--- NOTE | 2017-09-08 16:01 | PRG ---
DATE OF SERVICE: 09/08/2017. SUBJECTIVE: Mr. Stallings is awake and alert. He reports no abdominal pain today. He is tolerating oral intake. He received 3 units of packed red blood cells during dialysis yesterday. OBJECTIVE: VITAL SIGNS: Stable. Current vital signs include blood pressure of 155/84, pulse is 113, respirato ry rate is 20, maximum temperature in the last 24 hours is 98.9 degrees Fahrenheit, oxygen saturatio n is 99% on room air. HEENT EXAMINATION: Reveals normocephalic and atraumatic. He has no sclerae icterus is present. No jugular venous distention noted. HEART: Reveals regular rate with sinus tachycardia. No murmurs or gallops auscultated. LUNGS: Clear to auscultation bilaterally. Breathing is regular and unlabored. ABDOMEN: Soft and nondistended. He has minimal tenderness to palpation with no gross rebound tende rness present. GENITOURINARY EXAMINATION: Reveals massive scrotal edema, which is stable. Excoriated skin not ble eding at the time of this evaluation. IMAGINGS: CT scan of the abdomen and pelvis, which was obtained yesterday reveals some fluid collec tions in the right lower quadrant, pelvis in the left scrotal hernia sac. There was no active contrast extravasation. LABORATORY DATA: Today include a CBC with 12,900 white blood cells, hemoglobin and hematocrit which are now stable at 7.5 and 22.6, respectively. Platelet count is 221,000. Metabolic profile: Sodium 137, potassium 3.9, chloride is 100, bicarbonate 25, BUN 51, creatinine i s 5.84, glucose 134. IMPRESSION: 1. A massive scrotal edema with persistent non-incarcerated inguinal hernia. 2. Stable acute blood loss anemia. 3. No evidence of ongoing bleeding. RECOMMENDATIONS: 1. I discussed with the patient's primary surgeon Dr. Michael Ochoa via telephone conversation. 2. He is fully aware of the patient. 3. I have also informed him that the patient is hemodynamically stable and shows no evidence of str angulated or incarcerated inguinal hernia. 4. He is aware of the postoperative hemorrhage, which is now stable following blood transfusion. 5. Once the patient is discharged, he requires a follow up with Dr. Ochoa maintaining his origin al appointment of 09/12/2017. There remains no acute surgical indication for this patient at this time. General surgery will sign off and be available to reevaluate the patient on demand.
--- NOTE | 2017-09-08 18:36 | CON ---
DATE OF CONSULTATION: 09/08/2017 CONSULTING PHYSICIAN: Dr. Andersen. CONSULTED PHYSICIAN: Yousif White M.D REASON FOR CONSULTATION: Scrotal edema and swelling. HISTORY OF PRESENT ILLNESS: Mr. Stallings is a 47-year-old black male, who was admitted to the [facility] after a recent inguinal hernia repair via an abdominal approach. Postoperatively, the patient beg an feeling lethargic and weakness and woke up from sleeping with associated weakness and slurred and poor speech. His family notified EMS and the patient was brought to the hospital where his blood p ressure was in the 90/60s. He was found to have a hemoglobin of 2.5. He was a patient with end-sta ge renal disease and he was given 1 unit of blood and then taken for dialysis and then had another 3 units of blood given. He is more stable now in the ICU. However, the patient was noted to have ma rked scrotal edema, for which I have been consulted. On my discussion with the patient, he states t hat he is still able to urinate despite his significant scrotal edema. He does not produce much uri ne per day due to his end-stage renal disease, but he still urinates 2-3 times per day. He states t hat the skin is very stretched and is bleeding frequently that he has had scrotal edema prior to his inguinal hernia repair, but he said he got acutely worse after his surgery. It was also noted on h is CT scan that he had intraabdominal hemorrhage and bleeding as well as a history of coffee-ground emesis prior to coming into the hospital. The remainder of his medical problems are being addressed by the critical care and medicine teams. PAST MEDICAL HISTORY: 1. End-stage renal disease on hemodialysis. 2. Illicit drug use. 3. Bilateral inguinal hernias. 4. Hypertension. 5. Systolic/diastolic congestive heart failure with an EF of 40% to 45%. 6. Chronic microcytic anemia. PAST SURGICAL HISTORY: 1. AV fistula placement. 2. Bilateral inguinal hernia repair recently on 08/15/2017 at [facility]. HOME MEDICATIONS: 1. Aspirin daily. 2. Ferrous sulfate. 3. Isosorbide mononitrate daily. 4. Amlodipine b.i.d. 5. Hydralazine t.i.d. ALLERGIES: TEA. FAMILY HISTORY: Significant for hypertension. SOCIAL HISTORY: The patient has a longstanding abuse of cocaine and other illicit drugs. He smokes cigarettes up to half a pack daily and an occasionally uses alcohol. He currently lives in [place]. REVIEW OF SYSTEMS: A 12 point review of systems is currently unremarkable other than the patient's complaint of scrotal swelling and slight abdominal pain. He is no longer having any nausea, vomitin g, shortness of breath, chest pain. Denies any lower extremity swelling, any history of hematuria, dysuria, or difficulty with urination. The remainder of 12-point review of systems was reviewed and otherwise negative. PHYSICAL EXAMINATION: VITAL SIGNS: Temperature 98.9, blood pressure was 91/63, heart rate 119, saturations 96% on room ai r, and respirations 19. GENERAL: No apparent distress, communicative, alert, well-nourished, well-developed, appears stated age. HEENT: Normocephalic, atraumatic. Pupils are symmetric and round. Sclerae nonicteric. Moist muco us membranes. Trachea midline. CARDIOVASCULAR: Sinus tachycardia with normal S1 and S2. Symmetric pulses. Fistula is pulsating w ell with good bruit. CHEST: No increased work of breathing. Symmetric expansion of lungs clear anteriorly. ABDOMEN: Soft, nontender, nondistended, positive bowel sounds, no hepatosplenomegaly, rebound, guar ding, or tenderness. There is a healing midline lower incision which is clean, dry, and intact. GENITOURINARY: There is significant scrotal edema with loss of anatomic landmarks, the penis is sig nificantly retracted into the swelling is difficult to visualize via glans or meatus. There is mild skin breakdown surrounding the scrotal edema, no evidence of Rolly's gangrene or cellulitis or i nfection at this time. No decubitus ulcer posteriorly. EXTREMITIES: No clubbing, cyanosis, or edema. Positive pulses. MUSCULOSKELETAL: No joint deformities or joint erythema noted. Full range of motion of all extremi ties. SKIN: Warm, dry, no rashes, good turgor. NEUROLOGIC: Cranial nerves II through XII grossly intact. No focal sensory motor deficits identifi ed. PSYCHIATRIC: Alert and oriented x3, appropriate mood and affect for situation. LABORATORY AND X-RAY FINDINGS: The full set of labs are in the [facility] system, which I have review ed. Of note, the patient's white count is currently 12.9 with hemoglobin currently at 7.5. BUN is 51 with a creatinine of 5.84. Potassium is 3.9 with sodium of 137. CT from 09/07/2017, demonstrates fluid collection is in the right lower quadrant, pelvis, and left i nguinal scrotal hernia sac. Of these, the pelvic collection is increased density may represent bloo d products. On my review of the CT, there appears to be significant recurrence of bilateral inguinal hernias wit h mesenteric fat in the left inguinal canal and significant amount of bowel contents as well as mese nteric fat into the right hemiscrotum causing a significant amount of the scrotal swelling, which wa s noted on physical exam, there is also some blood products in the scrotum along with some scrotal e evelyne. ASSESSMENT AND PLAN: This is a 47-year-old black male, status post bilateral inguinal hernia repair with recent intra-abdominal bleed resulting severe anemia and hypovolemic shock. His hemoglobin is now stable and his blood pressure and heart rate are stabilizing. This is being cared for by the m edical teams. From my standpoint, his scrotal swelling is primarily due to recurrence of a signific ant right-sided inguinal hernia with the addition of some bleeding into the scrotum and some scrotal edema. For now, supportive care would be in the patient's best interest with barrier creams such a s zinc oxide and moisturizing creams then after bathing. Elevation of the scrotum at rest and the p atient should continue to void without a catheter. If the patient has difficulty voiding, a suprapu bic catheter would be advisable over a Santoro as it was be a significant risk of erosion with this ty pe of scrotal edema. With regards to his scrotal swelling long-term, the patient will need a repeat inguinal hernia repair as the majority of the scrotal swelling is secondary to bowel contents withi n the scrotum rather than edema or blood products alone. It should be handled after the patient's h emoglobin has stabilized and it can probably be done on emergently as there is no current evidence f or an incarcerated hernia. The General Surgery team is also following and their recommendation robertu ld be followed. From my standpoint, given that this scrotal swelling is primarily due to hernia rep air. The above noted recommendations would be my primary recommendations at this point, but there i s nothing for Urology and I will go ahead and sign off on this case. Please reconsult if necessary.
[2017-09-09 04:49] LABS: Anisocytosis SLIGHT = 6-15 cells (100X) (0-5/hpf); Band 5 % (5-11); Hematocrit 21.6 % (42.0-52.0); Macrocytosis SLIGHT = 6-15 cells (100X) (0-5/hpf); Mean Platelet Volume 10.3 fL (7.4-10.4); Metamyelocyte 2 % (0-0); Neutrophil 77 % (42-75); Polychromasia SLIGHT = 2-3 cells (100X) (0-2/hpf); White Blood Cell (WBC) Count 9.2 thou/uL (4.8-10.8)
[2017-09-09 04:53] LABS: Anion Gap 13 mmol/L (10-20); BUN (Urea Nitrogen) 35 mg/dL (8.9-20.6); Calc. Creatinine Clearance 24 mL/min (70-130); Calcium 7.5 mg/dL (7.8-10.44); Carbon Dioxide 27 mmol/L (22-29); Chloride 101 mmol/L (98-107); Estimated GFR-MDRD 16
--- NOTE | 2017-09-09 07:11 | PRG ---
DATE OF SERVICE: 09/08/2017 SUBJECTIVE: The patient was seen and examined today and seems to be doing much better, noted with t he following vital sings. OBJECTIVE: VITAL SIGNS: Afebrile, blood pressure 146/87, pulse of 105 to 109, respiratory rate of 29, and O2 s aturation of 95% to 100%. HEENT: Unremarkable with moist oral mucosa. NECK: Supple. No conjunctival injection or icterus. CARDIOVASCULAR: First and second heart sounds were heard. RESPIRATORY SYSTEM: Clear to auscultation. DIGESTIVE: Revealed a benign abdomen with positive bowel sound. EXTREMITIES: Showed no significant peripheral edema. LABORATORY INVESTIGATION: Showed a white count of 3.9 thousand, hemoglobin 7.5. Chemistry showed s odium of 137, potassium 3.9, BUN of 51, with a creatinine of 5.84. IMPRESSION: 1. Severe anemia from multifactorial etiology, status post 4 units of blood. 2. End-stage renal disease, hemodialysis dependent. 3. Hypervolemia in the context of nephrotic syndrome/end-stage renal disease. 4. Leukocytosis. PLAN: 1. Hemodialysis today for 3 hours with ultrafiltration as tolerated by hemodynamics. 2. By Sunday, if the patient is still in the hospital, we will reevaluate the patient's anemia stat us with erythropoiesis stimulating agent versus transfusion. For now, we will focus on erythr opoiesis stimulating agents. 4. We will likely consult one of the plan for long-term access establishment. For now, the p atient is dialyzing with hemodialysis . 5. Further management will be dependent on the clinical course.
[2017-09-09] MEDS ORDERED: Heparin 10,000 UNITS/1 ML VIAL ONE (08:38)
[2017-09-09] MEDS: Pantoprazole 40 MG VIAL IVP SCH ×2 (08:40→21:50)
[2017-09-09] MEDS ORDERED: Propofol 1,000 MG/100 ML VIAL IV ONE (09:11)
--- NOTE | 2017-09-09 10:06 | PRG ---
DATE OF SERVICE: 09/09/2017 SUBJECTIVE: The patient is seen and examined at the bedside. He feels significantly better this mo rning. He is getting ready for his EGD by Dr. Villanueva this morning. OBJECTIVE: VITAL SIGNS: Blood pressure is 115/77, pulse is 92, respiratory rate is 20, and O2 saturation is 10 0% on room air. HEENT: Atraumatic, normocephalic. Eyes are PERRLA. Conjunctiva palish. Oral mucosa is moist. NECK: Supple, no lymphadenopathy, JVD 1+ similar bilaterally. LUNGS: Breath sounds, slightly diminished at both bases. No crackles, no rales, no wheezing. CARDIOVASCULAR: S1, S2. Hyperdynamic, no S3, no S4. ABDOMEN: Soft and nontender, nondistended. BACK: The incision postop is healing properly. GENITOURINARY: Scrotum as before. Significantly enlarged and no pain on palpation. EXTREMITIES: No clubbing, cyanosis or edema. NEUROLOGIC: He is alert and oriented x4. There is not any sensory or motor deficits present. Cran ial nerves are intact. LABORATORY DATA: Showed a white count of 9.2, hemoglobin 7.0, hematocrit 21.6, platelet count is 17 9, neutrophils 77%. Sodium of 138, potassium 3.4, chloride 101, CO2 27, BUN 35, creatinine 4.7, glu cose 101, calcium 7.5. Microbiology showed stool occult blood positive and blood cultures x2 negati ve. ASSESSMENT: 1. Encephalopathy, metabolic, resolved. 2. Severe anemia with some evidence of blood loss in the abdomen suggestive of some postoperative b leeding. The patient admitted this morning that there was a lot of external bleeding from his scrot um. He was not able to stop the bleeding for quite sometime, so that was most likely contributing t o level of anemia he presented with at the time of admission. The patient is scheduled for EGD by Nayana Villanueva today. He also admitted that he has a history of peptic ulcer in the past. Colonoscopy i s not going to be performed since he has loops of bowels in his inguinal hernia and this would be da ngerous to place the scope in situation like that. 3. Severe hypotension related to significant volume loss secondary to bleeding, improved with trans fusion of packed red blood cells units. 4. End-stage renal disease on hemodialysis, supervised by Dr. Deras. 5. Massive swelling in the scrotum from inguinal hernia, but there is no signs of any infarction or incarceration. General surgeon talked to Dr. Ochoa who did the previous surgery at [facility] and he informed him that clinically he is stable. He does not need any urgent nolasco rgical intervention and Dr. Ochoa would like to see the patient on 09/12/2017 appointment, which was set up before to follow up with him. 6. Recent ventral hernia surgery. 7. Chronic cocaine abuse, ongoing. 8. Gdrel-ii-mpwxrlx anemia, secondary to recent blood loss and chronically anemic secondary to end- stage renal disease. PLAN: To have EGD done this morning by Dr. Villanueva. We will continue on p.r.n. hemodialysis per Dr. Deras. I am going start him on small dose of his beta yonatan since his blood pressure is run shahbaz on the lower side. We will see whether he can maintain his blood pressure in good range with j ust half dose of beta yonatan which he was taking at home. He will continue on his SCDs for DVT pro phylaxis.
--- NOTE | 2017-09-09 12:11 | PRG ---
DATE OF SERVICE: 09/09/2017 SERVICE: Pulmonary Medicine. INTERVAL HISTORY: The patient is doing outstanding from a respiratory standpoint. He has no chest discomfort, nausea, vomiting or pain. He is actually back to his usual state of health. He has no specific complaints and there were no events overnight. He just got back from EGD. There was a thomas sh clean-based ulcer without a high risk for bleeding. PHYSICAL EXAMINATION: VITAL SIGNS: Afebrile, pulse 105, blood pressure 113/68, respirations 24 and saturation 100% on maribel m air. GENERAL: Patient is awake and alert, in no apparent distress. LUNGS: Excellent air entry with no prolonged expiratory phase. Dependent crackles are minimal. HEART: Normal rate and regular. ABDOMEN: Soft, nontender and nondistended. Bowel sounds positive. MUSCULOSKELETAL: No cyanosis or clubbing. There is trace-pitting edema in the bilateral lower extr emities. NEUROLOGIC: Grossly nonfocal. LABORATORY DATA: Hemoglobin 7.0 and gently trending downward. WBC 9.2. Basic metabolic profile is otherwise unremarkable. Platelets 179. Creatinine 4.70. Potassium 3.4. Basic metabolic profile is otherwise unremarkable. Blood cultures x2 are negative. ASSESSMENT: 1. Acute blood loss anemia. 2. Metabolic encephalopathy, resolved. 3. Intraabdominal hemorrhage secondary to recent surgery. 4. End-stage renal disease. 5. Peptic ulcer disease, not actively bleeding. PLAN: We will continue the PPI twice daily. I will repeat hemoglobin tomorrow morning. If he yahir ins stable, he can be discharged from the hospital as he has very close follow up with his surgeon o n the 18th in the outpatient setting. I will continue to follow while he remains in house for the t miguel being. I will transition him out of the ICU to the medical unit today.
[2017-09-09] MEDS: Ondansetron ODT 4 MG TAB PO PRN (13:36)
--- NOTE | 2017-09-09 17:30 | OP ---
PROCEDURE: Esophagogastroduodenoscopy. PREPROCEDURE DIAGNOSES: 1. History of hematemesis. 2. Presentation with severe anemia with hemoglobin of 2, baseline hemoglobin of 8. There was also some history of possible intra-abdominal bleeding after hernia repair and he has had hemorrhage from scrotal tissue, which is swollen from a large hernia and has skin breakdown; however, he reports th ere was actually quite a bit of clot bleeding from that area. POSTPROCEDURE DIAGNOSES: 1. Severe Calloway grade D erosive esophagitis, biopsies obtained to rule-out other processes. This looks like a classic erosive esophagitis from reflux and vomiting. 2. Small erosion in the stomach, now likely bleeding site but biopsied. 3. Otherwise normal esophagogastroduodenoscopy with no active bleeding site encountered. RECOMMENDATIONS: 1. Continue PPI. He can transition to p.o. if he is tolerating p.o. okay. 2. We will resume diet. 3. We will defer to General Surgery regarding management of large scrotal hernia with both large an d small bowel in it. 4. The patient is not a candidate for colonoscopy at this present time with no active bleeding and large amount of small and large bowel in his scrotal hernia, would be at high risk for causing obstr uction or perforation. That could be considered at a later date once it repaired. ANESTHESIA: TIVA. PROCEDURE IN DETAIL: After the patient was informed of the risks, benefits, possible complications of endoscopy including perforation, bleeding, reactions to medication and aspiration, informed conse nt was obtained. The patient was brought to endoscopy suite where he was sedated in gradual fashion . Once he was comfortable, a bite block was placed in incisural orifice. The endoscope was advance d through the esophagus, stomach and second and third portion of duodenum and slowly removed. The e sophagus was notable for LA grade D reflux esophagitis throughout the distal third of the esophagus. Biopsies were taken around the GE junction area to rule-out Sanchez's malignancy, but this seems l ess likely. He did have a small hiatal hernia, which was normal. There was small erosion on the in cisor, which was biopsied. It was not bleeding. The stomach was otherwise normal in forward and re troflexed views. The duodenum was normal to the third portion with no evidence of bleeding. The sc ope was removed. The patient tolerated the procedure well with no complications.
--- NOTE | 2017-09-09 17:41 | PRG ---
DATE OF SERVICE: 09/09/2017 SUBJECTIVE: The patient was seen and examined, feeling better, noted with the following vital signs . OBJECTIVE: VITAL SIGNS: Afebrile with temperature 98.2, pulse 114, respiratory rate 18, O2 sat 99% with a bloo d pressure 109/70. HEENT: Unremarkable. Moist oral mucosa. CARDIOVASCULAR: First and second heart sounds were heard. RESPIRATORY: Clear to auscultation. DIGESTIVE: Revealed a benign abdomen. EXTREMITIES: No peripheral edema. LABORATORY INVESTIGATIONS: Showed hemoglobin of 7.0. IMPRESSION: 1. Severe anemia, status post 4 units of blood. 2. End-stage renal disease, on hemodialysis. PLAN: 1. The patient is to be dialyzed tomorrow in accordance with the schedule with the plan to transfus e 2 units of blood. 2. Surgical consults with Dr. Stewart or Dr. Francis to evaluate the patient for possible long-term dialysis access placement. 3. We will do a vein mapping. 4. We enhance this patient for long-term dialysis access. 5. We will start this patient on erythropoiesis-stimulating agent.
[2017-09-09] MEDS ORDERED: Mag-Al Plus 1200 MG/1200 MG/120 MG/30 ML UDCUP PO PRN (20:55)
[2017-09-09] MEDS: HYDROcodone/Acetaminophen 5/325 mg Tablet PO PRN (21:47)
[2017-09-09] MEDS: Metoprolol Tartrate 25 MG TAB PO SCH (21:47)
[2017-09-09] MEDS: Cyclobenzaprine 10 MG TAB PO PRN (21:48)
[2017-09-10 04:40] LABS: #Eosinphils 0.1 thou/uL (0.0-0.7); #Lymphocytes 1.3 thou/uL (1.20-3.40); #Monocytes 0.8 thou/uL (0.11-0.59); #Neutrophils 3.9 thou/uL (1.40-6.50); %Basophils 0.3 % (0.0-1.0); %Eosinophils 1.3 % (0.0-10.0); %Lymphocytes 21.2 % (21.0-51.0); %Monocytes 13.1 % (0.0-10.0); Anisocytosis MODERATE=16-30 cells (100X) (0-5/hpf); Hematocrit 19.4 % (42.0-52.0); Mean Platelet Volume 10.9 fL (7.4-10.4); Microcytosis SLIGHT = 6-15 cells (100X) (0-5/hpf); Polychromasia SLIGHT = 2-3 cells (100X) (0-2/hpf); Red Blood Cell (RBC) Count 2.26 mill/uL (4.70-6.10); White Blood Cell (WBC) Count 6.1 thou/uL (4.8-10.8)
--- NOTE | 2017-09-10 07:12 | ULT ---
ULTRASOUND WITH DOPPLER DUPLEX VENOUS BILATERAL UPPER EXTREMITY VENOUS MAPPING: Date: 09/09/17 HISTORY: 47-year-old male with end-stage renal disease requiring hemodialysis. [facility]. TECHNIQUE: Lopes scale, color flow, and spectral analysis of major veins of bilateral upper extremities. FINDINGS: Calibers are given in millimeters: Right Brachial Artery: 4 Right Radial Artery: 2 Right Ulnar Artery: 1.5 RIGHT CEPHALIC VEIN: Proximal Arm: 2 Mid Arm: 2.5 Distal Arm: 1 Antecubital: Not visualized Proximal Forearm: Not visualized. Mid Forearm: Not visualized. Distal Forearm: Not visualized. RIGHT BASILIC VEIN: Proximal Arm: 3 Mid Arm: 2.5 Distal Arm: 2.5 Antecubital: 2 Proximal Forearm: 1.5 Mid Forearm: 2.5 Distal Forearm: 2 Left Brachial Artery: 4.5 Left Radial Artery: 3.5 Left Ulnar Artery: 2 LEFT CEPHALIC VEIN: Proximal Arm: 2.5 Mid Arm: 2.5 Distal Arm: Not visualized. Antecubital: Not visualized Proximal Forearm: Not visualized. Mid Forearm: Not visualized. Distal Forearm: Not visualized. LEFT BASILIC VEIN: Proximal Arm: 4 Mid Arm: 5.5 Distal Arm: 5.5 Antecubital: 3.5 Proximal Forearm: 3.5 Mid Forearm: 1.5 Distal Forearm: Not visualized. IMPRESSION: The largest caliber vein is the basilic vein in the left arm, where it is consistently larger than 3 mm. POS: [facility]
--- NOTE | 2017-09-10 08:54 | PRG ---
DATE OF SERVICE: 09/10/2017 The patient was seen and examined today at dialysis with no new complaint. PHYSICAL EXAMINATION: VITAL SIGNS: Afebrile with temperature 99.5, pulse 97, respiratory rate 18, blood pressure 154/93, O2 sat 96%. HEENT: Unremarkable. CARDIOVASCULAR: First and second heart sounds were heard. RESPIRATORY: Clear to auscultation. DIGESTIVE: Revealed a benign abdomen with positive bowel sounds. EXTREMITIES: No peripheral edema. SKIN: No new gross rash. LYMPHATICS: No peripheral lymphadenopathy. LABORATORY INVESTIGATIONS: Showed a hemoglobin of 6.3. IMPRESSION: 1. Severe anemia, status post multiple blood transfusions. 2. End-stage renal disease on hemodialysis. 3. Nephrotic syndrome. PLAN: 1. The patient to be transfused with 2 units of blood during dialysis today. 2. Surgery consult for long-term access creation. 3. Vein mapping. 4. Erythropoiesis stimulating agent to be administered during dialysis. 5. Further management to be dependent on the clinical course.
[2017-09-10] MEDS ORDERED: Epoetin (ESRD) 20,000 UNITS/ML IVP SCH (09:48)
--- NOTE | 2017-09-10 12:53 | PRG ---
DATE OF SERVICE: 09/10/2017 SERVICE: Pulmonary Medicine. INTERVAL HISTORY: The patient is doing well from a respiratory standpoint. He denies any current f cam[place], chills, nausea or vomiting. His hemoglobin continues to trend down, but he is currently asym ptomatic. He is going to be getting blood with dialysis today. PHYSICAL EXAMINATION: VITAL SIGNS: Afebrile, pulse 103, respirations 18, saturation 97% on room air. GENERAL: The patient is awake and alert, in no apparent distress. LUNGS: Excellent air entry with no prolonged expiratory phase, wheezing, rhonchi or crackles. HEART: Tachycardic. Regular. ABDOMEN: Soft, nontender, and nondistended. Bowel sounds positive. MUSCULOSKELETAL: No cyanosis or clubbing. There is no pitting in the bilateral lower extremities. GENITOURINARY: Scrotal edema. NEUROLOGIC: Grossly nonfocal. LABORATORY DATA: WBC 6.1, hemoglobin 6.3 and down trending, platelets 146,000. Blood culture x2 is negative to date. ASSESSMENT: 1. Acute blood loss anemia. 2. Metabolic encephalopathy, resolved. 3. Intraabdominal hemorrhage secondary to recent surgery. 4. End-stage renal disease. 5. Peptic ulcer disease, not active. PLAN: The patient will get some blood today. At this point, he has no further requirements for inp atient Pulmonary or Critical Care opinion. I would like to get him to his surgeon. He has an outpa tient appointment with him scheduled for 2 days from today. If he remains stable over the next 24 h ours, discharge should be considered. If he is not, transferring the patient back to his surgeon kevin townsend be reasonable. Please call if his clinical condition deteriorates.
[2017-09-10] MEDS: Metoprolol Tartrate 25 MG TAB PO SCH ×2 (14:54→21:35)
[2017-09-10] MEDS: Pantoprazole 40 MG VIAL IVP SCH (14:56)
--- NOTE | 2017-09-10 16:07 | PDOC.PN ---
- Subjective Encounter Start Date: 09/10/17 Encounter Start Time: 16:00 Subjective: f/u for severe anemia and hypovolemic shock. s/p 6u PRBC's and -: severe erosive esophagitis noted on EGD. Tolerating HD currently. - Objective Resuscitation Status: Resuscitation Status FULL:Full Resuscitation MAR Reviewed: Yes Vital Signs & Weight: Vital Signs (12 hours) Temp Pulse Pulse Resp BP BP Pulse Ox 09/10/17 12:45 98.9 F 116 H 18 99 09/10/17 12:00 116 H 126/66 09/10/17 09:30 98.4 F 103 H 18 148/84 H 97 09/10/17 09:15 98.6 F 107 H 18 133/80 99 09/10/17 09:00 98.5 F 103 H 18 132/84 98 09/10/17 08:32 99.5 F 96 18 154/93 H 97 09/10/17 08:26 99.1 F 83 18 147/83 H 97 09/10/17 08:12 98.8 F 102 H 20 133/78 99 09/10/17 07:59 99 F 109 H 20 129/80 93 L Weight Admit Weight 185 lb 13.584 oz Weight 185 lb 13.584 oz Most Recent Monitor Data Heart Rate from ECG 101 NIBP 119/70 NIBP BP-Mean 86 Respiration from ECG 22 SpO2 99 I&O: 09/09/17 09/10/17 09/11/17 06:59 06:59 06:59 Intake Total 1260 480 700 Output Total 400 100 Balance 860 380 700 Result Diagrams: 09/10/17 03:45 09/09/17 04:00 Additional Labs: Microbiology 09/08/17 12:40 Stool - Liquid Stool Occult Blood (YOSSI) - Final 09/07/17 06:39 Emesis Gastric Occult Blood - Final 09/07/17 02:03 Venous blood - Neck Blood Culture - Preliminary NO GROWTH AT 48 HOURS 09/07/17 01:14 Venous blood - Neck Blood Culture - Preliminary NO GROWTH AT 48 HOURS Laboratory Tests 09/07/17 09/07/17 09/07/17 01:14 05:17 08:52 Hgb 2.5 L* 3.9 L* Hep Bs Antigen Non-Reactive 09/07/17 09/08/17 09/09/17 14:52 04:00 04:00 Hgb 7.9 L 7.5 L 7.0 L Hep Bs Antigen Radiology Reviewed by me: Yes (EGD - severe Grade D erosive esophagitis) Phys Exam - Physical Examination Constitutional: NAD HEENT: PERRLA, oral pharynx no lesions Neck: no JVD, supple R upper chest wall with tunneled HD catheter Respiratory: no wheezing, clear to auscultation bilateral Cardiovascular: RRR Gastrointestinal: soft, non-tender, no distention, positive bowel sounds Musculoskeletal: no edema, pulses present Neurological: normal sensation, moves all 4 limbs Psychiatric: A&O x 3 Skin: normal turgor, cap refill <2 seconds Dx/Plan (1) Hypovolemic shock Code(s): R57.1 - HYPOVOLEMIC SHOCK Status: Acute Comment: Suspect due to erosive esophagitis and scrotal blood loss post-op, s/p 6u PRBC's, serial H/H, PPI (2) Acute blood loss anemia Code(s): D62 - ACUTE POSTHEMORRHAGIC ANEMIA Status: Acute Comment: See #1 above, check CBC in am (3) ESRD (end stage renal disease) on dialysis Code(s): N18.6 - END STAGE RENAL DISEASE; Z99.2 - DEPENDENCE ON RENAL DIALYSIS Status: Chronic Comment: HD per Renal service, AV fistula placement pending (4) KVNG (acute kidney injury) Code(s): N17.9 - ACUTE KIDNEY FAILURE, UNSPECIFIED Status: Acute (5) Tobacco dependence Code(s): F17.200 - NICOTINE DEPENDENCE, UNSPECIFIED, UNCOMPLICATED Status: Chronic Comment: smoking cessation resources (6) Polysubstance abuse Code(s): F19.10 - OTHER PSYCHOACTIVE SUBSTANCE ABUSE, UNCOMPLICATED Status: Chronic Comment: Longstanding cocaine abuse, drug abstinence resources, avoid cocaine - Plan PT/OT, social service manager, out of bed/ambulate, DVT proph w/SCDs Stable currently -: Continue serial H/H monitoring -: Continue Procrit 5K u Sc today -: HD per Renal service -: AM lab: CBC * Likely home in 24h if H/H stabilizes
[2017-09-10] MEDS: HYDROcodone/Acetaminophen 5/325 mg Tablet PO PRN ×2 (16:16→22:23)
[2017-09-10] MEDS ORDERED: Epoetin (ESRD) 20,000 UNITS/ML SC SCH (16:51)
[2017-09-10] MEDS: Cyclobenzaprine 10 MG TAB PO PRN (22:24)
[2017-09-11 04:11] LABS: #Eosinphils 0.2 thou/uL (0.0-0.7); #Lymphocytes 1.2 thou/uL (1.20-3.40); #Monocytes 0.9 thou/uL (0.11-0.59); #Neutrophils 4.8 thou/uL (1.40-6.50); %Basophils 0.1 % (0.0-1.0); %Eosinophils 2.2 % (0.0-10.0); %Lymphocytes 17.1 % (21.0-51.0); %Monocytes 12.5 % (0.0-10.0); Hematocrit 26.7 % (42.0-52.0); Mean Platelet Volume 10.6 fL (7.4-10.4); Red Blood Cell (RBC) Count 3.06 mill/uL (4.70-6.10)
[2017-09-11] MEDS: HYDROcodone/Acetaminophen 5/325 mg Tablet PO PRN ×2 (05:33→15:42)
--- NOTE | 2017-09-11 06:22 | CON ---
DATE OF CONSULTATION: 09/10/2017 REASON FOR CONSULTATION: Need for dialysis access. HISTORY: Mr. Stallings is a 47-year-old gentleman who has been on dialysis for about 3 months now. He states that his renal failure resulted from his running out of medications for his heart failure. He has a tunneled hemodialysis catheter in place which was placed by his surgeon at [facility], but requires permanent access. He has been admitted to the hospital for hemorrhagic shock, thought to be a result of intraabdominal bleeding following a small bowel resection and repair of incarcerated strangulated umbilical hernia as well as some hematemesis resulting from erosive esophagitis and a small erosion of the stomach. The patient has been transfused and is clinically stable and tolerating dialysis. PAST MEDICAL HISTORY: End-stage renal failure on dialysis for the past 3 months , hypertension and chronic systolic and diastolic congestive heart failure, longstanding left inguinal hernia of many years' duration and history of illicit drug use. He also has anemia of chronic disease. PAST SURGICAL HISTORY: Right IJ tunneled hemodialysis catheter placement, repair of incarcerated strangulated umbilical hernia with small bowel resection on 08/15/2017 at [facility]. OUTPATIENT MEDICATIONS: 1. Aspirin. 2. Iron. 3. Isosorbide mononitrate. 4. Amlodipine. 5. Hydralazine. INPATIENT MEDICATIONS: Epogen, metoprolol, Protonix, and multiple p.r.n.s. ALLERGIES: He has no known drug allergies, but does have a dietary allergy to TEA. FAMILY HISTORY: He has a family history of heart disease on his father's side, but no known history of renal failure. SOCIAL HISTORY: Positive for tobacco and cocaine abuse, but negative for heavy alcohol use or other illicit drugs. REVIEW OF SYSTEMS: Ten system review of systems is negative except for chronic left scrotal swelling and discomfort which is stable. PHYSICAL EXAMINATION: VITAL SIGNS: T-max 100.9, temperature current 99.9, heart rate is elevated in the 1-teens, respirations 16, 99% saturated on room air, blood pressure 111/78. GENERAL: Reveals a healthy-appearing man in no acute distress. He is not jaundiced, icterus, flushed or toxic in appearance. HEENT: Unremarkable. NECK: Supple, without lymphadenopathy or thyroid nodules. HEART: Tachycardic, but regular in its rate and rhythm with a soft systolic murmur. LUNGS: Clear to auscultation bilaterally. ABDOMEN: Soft and nondistended. He has a healing periumbilical midline incision without palpable hernias or masses. Bowel sounds are normal. His abdomen is nontender and flat. He has a very large left inguinal hernia which is only partially reducible and is tender with efforts to reduce it. This obviously contains bowel as there is gurgling of bowel gas with manipulation of the hernia. The right testicle is grossly normal. The left testicle is not palpable within the large hemiscrotum. EXTREMITIES: Warm and well perfused. He does not have any significant edema. Radial and ulnar pulses are normal bilaterally. He has normal filling bilaterally on Kirill's test on the right, and radial dominant filling on the left. No palpable forearm veins and the antecubital vein are small to palpation. NEUROLOGIC: No focal deficits. PSYCHIATRIC: Alert, oriented, and appropriate. LABORATORY: White count is 6.1, platelets are 146, hemoglobin low at 6.3 and hematocrit low at 19. Creatinine 4.7. RADIOLOGY: CT of the abdomen and pelvis show blood in the left scrotal hernia sac as well as the pelvis and the right pericolic area without any evidence of obstruction. ASSESSMENT: End-stage renal failure with need for permanent dialysis access. He appears to have adequate upper arm basilic veins bilaterally and is right- handed. We will plan on a left basilic AV fistula with later transposition. The procedure and its inherent risks were discussed in detail with the patient. These include, but are not limited to bleeding, infection, risks of anesthesia , failure of the fistula to mature or need for additional procedures to obtain and maintain a functioning fistula, arterial steal which could cause ischemic damage to the fingers or hand and might require additional procedures to correct or improve. He also understands that the basilic vein fistula is a two- part procedure and he would require transposition of the fistulized vein at a future date. All of his questions were answered and we will schedule his surgery for later this week. This can be done as an outpatient if he is medically ready to discharge in the meantime. MARIANO
[2017-09-11] MEDS: Metoprolol Tartrate 25 MG TAB PO SCH (09:23)
--- NOTE | 2017-09-11 13:20 | PRG ---
DATE OF SERVICE: 09/11/2017 Mr. Stallings is without complaints. The nurses said he may go home today. He had a dialysis catheter placed. PHYSICAL EXAMINATION: VITAL SIGNS: Temperature is 99, pulse 102, blood pressure 139/83. ABDOMEN: Nontender. LABORATORY STUDIES: White count 6.7, hemoglobin 8.6, platelet count 140. Pathology from his gastri c biopsy showed what they feel is high grade dysplasia and the stomach biopsies showed erosive esoph agitis in the esophagus. ASSESSMENT: 1. 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 This needs to be confirmed by a second opinion outside pathology. If it is true, we will need to consider antral gastrectomy or referral for possible endo scopic ablation although he has multiple areas that appear to be intestinal metaplasia. Differentia l diagnosis could be that there may be some ischemic injury without giving an atypical appearance as he presented with a hemoglobin of 2.5 2. Erosive esophagitis. RECOMMENDATIONS: 1. I have already contacted Pathology about the second opinion on the pathology specimen. 2. The patient needs to follow up with me in the office in 2 weeks. He has been given my phone num edison. 3. He needs to be on b.i.d. PPIs. 4. He needs to avoid all NSAIDs. 5. Will defer to management of his large hernia with bowel in the scrotal sac to the Surgery Marily nguyen
--- NOTE | 2017-09-11 14:54 | PRG ---
DATE OF SERVICE: 09/11/2017 The patient was seen and examined and noted with the following vital signs. PHYSICAL EXAMINATION: VITAL SIGNS: Afebrile with temperature 98.3, pulse 116, respiratory rate of 18, O2 saturation of 98 %, and blood pressure 129/82. HEENT EXAMINATION: Unremarkable with moist oral mucosa. No conjunctival injection or icterus. NECK: Supple. CARDIOVASCULAR SYSTEM: First and second heart sounds were heard. RESPIRATORY SYSTEM: Clear to auscultation. DIGESTIVE SYSTEM: Revealed a benign abdomen with positive bowel sounds. EXTREMITIES: No peripheral edema. SKIN EXAMINATION: No new gross rash. LYMPHATICS: No peripheral lymphadenopathy. LABORATORY INVESTIGATION: Showed hemoglobin 8.6. IMPRESSION: 1. End-stage renal disease, hemodialysis dependent. 2. Anemia of multifactorial etiology. 3. Nephrotic syndrome. PLAN: 1. Patient to continue hemodialysis per his schedule. 2. For long-term access, plan will depend on the surgeons, if not during this hospitalization can b e done as an outpatient. 3. Further management to be dependent on the clinical course.
[2017-09-11 16:56] VITALS: BP 151/93; TEMP 99.3
--- NOTE | 2017-09-11 22:54 | DIS ---
DATE OF ADMISSION: 09/07/2017 DATE OF DISCHARGE: 09/11/2017 DISCHARGE DIAGNOSES: 1. Status post hypovolemic shock, resolved. 2. Grade D erosive esophagitis. 3. Acute blood loss anemia, status post 6 units of packed red blood cells. 4. End-stage renal disease, on hemodialysis. 5. Tobacco abuse. 6. Polysubstance abuse including cocaine. 7. Large left inguinal hernia, partially reducible. 8. High grade dysplasia of the gastric antrum. CONSULTATIONS: Dr. Deras with Nephrology Service. Dr. Villanueva with GI Service. Dr. Stewart [facility] General Surgery Service. Dr. Andersen with Pulmonology Service. Dr. White with Urology service . PERTINENT LABORATORY AND X-RAY FINDINGS: Creatinine ranged between 4.70-6.91, estimated GFR ranged between 11-16. Lactic acid level ranged between 1.8-6.2, BNP 4157. TSH 0.72. CBC showed hemoglobi n ranged between 2.5-8.6, MCV 87. Plasma alcohol level less than 10 on 09/07/2017. Hepatitis B abhinav face antigen nonreactive on 09/07/2017. Blood cultures x2 from 09/07/2017 showed no growth at 48 ho urs. Stool Hemoccult positive on 09/08/2017, x1. Portable chest x-ray dated 09/07/2017 showed card iomegaly, status post central line placement without evidence of pneumothorax in the right internal jugular central venous system. CT of the brain without contrast dated 09/07/2017 showed no acute in tracranial process. Testicular ultrasound dated 09/07/2017 showed complex bilateral hydroceles with bilateral inguinal hernias. CT of the abdomen and pelvis dated 09/07/2017 showed large left inguinal scrotal hernia containing l oops of small and large bowel with 9.0 x 7.0 x 7.5 cm fluid collection laterally. Gastric biopsies dated 09/09/2017 showed high grade glandular dysplasia. Active erosive esophagitis. No Sanchez's s pecialized columnar epithelial cells of the esophagus. HOSPITAL COURSE: This patient was admitted to the medical floor after initially presenting with alt ered mentation in the context of severe acute anemia and hypotension. The patient was treated for h ypovolemic shock after initial hemoglobin noted at 2.5. The patient received packed red blood cell infusions with serial H\T\H monitoring. The patient was evaluated by the Gastroenterology Service, undergoing EGD evaluation showing evidence of severe erosive esophagitis as well as gastritis. The patient received a total of 6 units of packed red blood cells during the hospital course with overal l stabilization of hemoglobin on serial monitoring. The patient received aggressive fluid resuscita tion due to hypovolemic shock, responsive to fluid boluses and supportive measures. The patient was noted with an acute encephalopathy likely due to metabolic derangement as stated previously, resolv ing by the time of discharge. The patient was also noted with end-stage renal disease, receiving he modialysis at the direction of the Nephrology Service throughout the hospital course. The patient u nderwent temporary hemodialysis catheter placement without complication. The patient was also evalu ated for potential AV fistula placement, which will be pursued on an outpatient basis. The patient did receive empiric antibiotic coverage initially, which was subsequently discontinued after patient 's presentation consistent with acute blood loss, hypovolemic shock. The patient was also evaluated due to bilateral inguinal hernias, left greater than right. Current recommendations per Surgical T eam were for outpatient followup with his primary surgeon for evaluation and consideration of repair . Overall, the patient exhibited no evidence of acute bowel obstruction. Overall, the patient yahir ined clinically stable throughout the remainder of the hospital course, tolerating regular oral inta ke with hemoglobin values stable on serial monitoring. Current recommendations are to continue Prot rober 40 mg b.i.d. and to avoid all NSAIDs. Overall, the patient remained clinically stable for the remainder of the hospital course and ready for discharge on 09/11/2017. DISCHARGE MEDICATIONS: 1. Flexeril 5 mg 1 tab p.o. t.i.d. p.r.n. 2. Isosorbide mononitrate 30 mg p.o. daily. 3. Metoprolol 12.5 mg p.o. b.i.d. 4. Protonix 40 mg p.o. b.i.d. 5. Amlodipine 5 mg p.o. b.i.d. 6. Clonidine 0.1 mg p.o. t.i.d. 7. Hydralazine 25 mg p.o. b.i.d. FOLLOWUP: The patient will follow up with his primary care provider at [facility] within 7 days of discharge. The patient will follow up with Dr. Stewart with General Surgery Service for conside ration of AV fistula placement on an outpatient basis. The patient will follow up with Dr. Rich meraz GI Service within 2 weeks of discharge to review gastric pathology results and for surveillance. The patient will follow up with Dr. Nichole at [facility] for evaluation of le ft inguinal hernia. CONDITION ON DISCHARGE: Fair. ACTIVITY: Ad roque. DIET: Heart healthy and renal. SPECIAL INSTRUCTIONS: The patient will follow up for outpatient hemodialysis 3 times per week. CODE STATUS: FULL. DISPOSITION: Home 09/11/2017. Total time preparing and coordinating discharge is 37 minutes.
[2017-09-24 13:34] LABS: Oxyhemoglobin 95.9 % (94.0-97.0)
[2017-09-24 13:36] LABS: Mode RA
== END 2017-09-11 19:06 | disposition home or self-care (01) | DRG 919 ==
LOC: ERS 00:03 → EEVIPCON 00:03 → CCU 03:57 → EEVIPCON 03:57 → ONC 09-09 12:54
PROVIDERS: ADMIT Family Medicine; ATTEND Family Medicine
PROC: 5A1D70Z Performance of Urinary Filtration, Intermittent, Less than 6 Hours Per Day (ICD-10-PCS; 2017-09-07)
PROC: 0DB58ZX Excision of Esophagus, Via Natural or Artificial Opening Endoscopic, Diagnostic (ICD-10-PCS; principal; 2017-09-10)
PROC: 0DB68ZX Excision of Stomach, Via Natural or Artificial Opening Endoscopic, Diagnostic (ICD-10-PCS; 2017-09-10)
PROC: 30233N1 Transfusion of Nonautologous Red Blood Cells into Peripheral Vein, Percutaneous Approach (ICD-10-PCS; 2017-09-10)
DX: K91.840 Postprocedural hemorrhage of a digestive system organ or structure following a digestive system procedure (principal); N18.6 End stage renal disease; R57.1 Hypovolemic shock; I13.2 Hypertensive heart and chronic kidney disease with heart failure and with stage 5 chronic kidney disease, or end stage renal disease; G93.41 Metabolic encephalopathy; N17.9 Acute kidney failure, unspecified; E72.20 Disorder of urea cycle metabolism, unspecified; E87.2 Acidosis; I95.9 Hypotension, unspecified; D62 Acute posthemorrhagic anemia; K22.10 Ulcer of esophagus without bleeding; I50.22 Chronic systolic (congestive) heart failure; F14.20 Cocaine dependence, uncomplicated; K40.90 Unilateral inguinal hernia, without obstruction or gangrene, not specified as recurrent; D63.1 Anemia in chronic kidney disease; D50.9 Iron deficiency anemia, unspecified; E87.79 Other fluid overload; F19.10 Other psychoactive substance abuse, uncomplicated; R79.1 Abnormal coagulation profile; R00.0 Tachycardia, unspecified; Z91.15 Patient's noncompliance with renal dialysis; Z99.2 Dependence on renal dialysis; Z87.01 Personal history of pneumonia (recurrent); Z79.82 Long term (current) use of aspirin; Z82.49 Family history of ischemic heart disease and other diseases of the circulatory system; Z91.09 Other allergy status, other than to drugs and biological substances; Y83.8 Other surgical procedures as the cause of abnormal reaction of the patient, or of later complication, without mention of misadventure at the time of the procedure; Y92.234 Operating room of hospital as the place of occurrence of the external cause
CPT/HCPCS: 36430; 36556; 70450; 71010; 74177; 76870; 80048; 80307; 82140; 82271; 82274; 82550; 82553; 82805; 83010; 83605; 83615; 83690; 83880; 84443; 84484; 85007; 85025; 85027; 85046; 85060; 85610; 85730; 86850; 86900; 86901; 87040; 87340; 88305; 88312; 88313; 90471; 90682; 90935; 93005; 93970; 93976; 96361; 96374; A4216; C9113; G0008; G0257; G0365; J1644; J1940; J2310; J2405; J2704; P9016; Q0162; Q2036; Q4081; S0028

== ENCOUNTER 2017-09-14 09:59 | Inpatient (IN) | payer OTHER ==
[2017-09-14] MEDS ORDERED: Fentanyl 100 MCG/2 ML VIAL ONE ×2 (10:55→11:14)
[2017-09-14] MEDS ORDERED: Lidocaine 2% w/Epinephrine 1:200K 20 ML VIAL ONE (11:13)
[2017-09-14] MEDS ORDERED: Bupivacaine 0.25% HCL 30 ML VIAL ONE (11:14)
[2017-09-14] MEDS ORDERED: Protamine Sulfate 50 MG/5 ML VIAL ONE (11:14)
[2017-09-14] MEDS ORDERED: Heparin 5,000 UNITS/ML VIAL ONE (11:14)
[2017-09-14 11:28] LABS: Anion Gap 16 mmol/L (10-20); BUN (Urea Nitrogen) 59 mg/dL (8.9-20.6); Calc. Creatinine Clearance 17 mL/min (70-130); Calcium 7.4 mg/dL (7.8-10.44); Carbon Dioxide 23 mmol/L (22-29); Chloride 103 mmol/L (98-107); Estimated GFR-MDRD 12
[2017-09-14 11:40] LABS: #Basophils 0.1 thou/uL (0.0-0.2); #Eosinphils 0.2 thou/uL (0.0-0.7); #Monocytes 0.7 thou/uL (0.11-0.59); #Neutrophils 3.1 thou/uL (1.40-6.50); %Basophils 1.2 % (0.0-1.0); %Eosinophils 3.7 % (0.0-10.0); %Lymphocytes 20.2 % (21.0-51.0); %Monocytes 13.9 % (0.0-10.0); Mean Platelet Volume 9.5 fL (7.4-10.4); Red Blood Cell (RBC) Count 2.94 mill/uL (4.70-6.10); White Blood Cell (WBC) Count 5.1 thou/uL (4.8-10.8)
[2017-09-14] MEDS ORDERED: PHENYLEPHRINE-NS 100 MCG/ML 10 ML SYRINGE ONE (11:52)
[2017-09-14] MEDS ORDERED: Lidocaine 2% PF 10 ML AMP (For Epidural Use) ONE (11:52)
[2017-09-14] MEDS ORDERED: ePHEDrine/0.9% NaCl/PF SYRINGE 50 mg/10 ml ONE (11:52)
[2017-09-14] MEDS ORDERED: Ondansetron HCl/PF 4 MG/2 ML Vial ONE (11:52)
[2017-09-14] MEDS ORDERED: Glycopyrrolate 0.2 MG/ML 5 ML SYRINGE ONE (11:52)
[2017-09-14] MEDS ORDERED: Propofol 200 MG/20 ML VIAL ONE ×2 (11:52)
[2017-09-14 21:19] VITALS: BP 127/80; TEMP 98.1; BMI 26.7
--- NOTE | 2017-09-14 22:58 | HP ---
CHIEF COMPLAINT: End-stage renal disease, status post AV fistula placement not able to get dialysis today. HISTORY OF PRESENT ILLNESS: History is that of a 47-year-old gentleman with end-stage renal disease , hemodialysis dependent Sunday, Sunday, Sunday, who last dialyzed on Sunday this week and missed dialysis on Sunday. The patient did present here for elective AV fistula placement; however, by the time the procedure was done, the patient could not get any dialysis outside or in his outpatien t dialysis unit that will effectively leave this patient not to be dialyzed for a whole week sometim e in the past when patient skipped dialysis for a whole week; patient ended up in the ER and spent s ome time in the hospital. In order to avoid this repeating , decision has now been taken to sinclair ve this patient admitted prior to being discharged. Past medical history, family history, social history remained the same. Please for the details of t his; refer to the notes that were recently dictated during the recent hospitalization. REVIEW OF SYSTEMS: As documented in the body of history, otherwise the other systems were reviewed and were found not to be significantly related to the presenting illness. PHYSICAL EXAMINATION: GENERAL: The patient was found to be somewhat groggy likely defect of recent anesthesia. Otherwise , the patient is oriented. No lateralizing signs, hemodynamically stable. HEENT: Unremarkable with moist oral mucosa. CARDIOVASCULAR SYSTEM: First and second heart sounds were heard. RESPIRATORY SYSTEM: Clear to auscultation. DIGESTIVE SYSTEM: Revealed a benign abdomen with positive bowel sounds. EXTREMITIES: No peripheral edema. SKIN EXAMINATION: No new gross rash. LYMPHATICS: No peripheral lymphadenopathy. LABORATORY INVESTIGATION: Showed a hemoglobin of 8.3, white count of 5100. Chemistry showed potass ium 4.1, creatinine of 6.36 and BUN of 59 with a bicarbonate of 23. IMPRESSION: 1. End-stage renal disease, stable. Hemodialysis dependent, due for dialysis today. 2. Nephrotic syndrome. 3. Severe anemia, status post recent multiple blood transfusions with relatively stable hemoglobin at this time of dictation. PLAN: The patient to be admitted and undergo hemodialysis. Hemodialysis order has been written inc luding erythropoiesis stimulating agent. Status post hemodialysis. The patient to be observed and if the patient remains stable, the patient technically will be able to be discharged. Condition of the patient at this time of dictation is good.
--- NOTE | 2017-09-15 21:00 | PDOC.OP ---
Operative Note - Operative Note Operative Note: PROCEDURE: Left brachiobasilic AV fistula SURGEON: Roxanne Stewart M.D. DATE OF PROCEDURE: 09/14/2017 PREOPERATIVE DIAGNOSIS: Renal failure POSTOPERATIVE DIAGNOSIS: Renal failure HISTORY: Patient with end-stage renal failure currently receiving dialysis through a tunneled hemodialysis catheter. He has not had any improvement in his renal function in 3 months time and his sap technical developer feels he will require ongoing dialysis so he has requested a fistula for this purpose. The patient has an unrelated problem of a large left inguinal hernia but I have recommended that he go to a hernia specialist for this and I have made that referral. His hernia is chronically incarcerated has recently gotten larger and more painful following some intra-abdominal bleeding which went down into the hernia sac. He does not have any signs or symptoms of obstruction and has been eating normally and having regular bowel movements. PROCEDURE IN DETAIL: After informed consent was obtained and appropriate preoperative antibiotics administered, the patient was taken to the operating room and placed in the supine position and monitored anesthesia care was administered. A preoperative block had been performed by Anesthesia and the adequacy of block was confirmed. The arm was prepped and draped in a standard sterile fashion and an incision made between the palpable cephalic vein and radial artery. Dissection was carried out to the cephalic vein, which appeared to be of adequate quality and caliber to support a fistula. This was dissected free circumferentially, ligated, and divided distally, and spatulated with Manning scissors. This was serially interrogated with cardiac dilators but was found to have a tight stenosis or occlusion about a third of the way up the forearm. Attention was turned to the antecubital vein complex. This was identified by palpation and an incision made between these veins and the palpable brachial pulse. Dissection was carried down to the antecubital veins which appeared to be of good caliber and quality. The forearm cephalic vein was good caliber as well. A perforating vein was identified and traced down to where it branched out. The branches were ligated and divided and the vein was spatulated between the branches. Cardiac dilators were used to interrogate the vein, but again a tight stenosis or stricture of the upper arm cephalic was encountered a couple centimeters above the antecubital fossa. There did not appear to be any communication between the antecubital veins and basilic vein. An ultrasound was then obtained in the basilic vein identified. This did not communicate with the cephalic vein at the level of the elbow, but did approach close enough to the basilic vein to be used as a fistula. At 30 incision was made between the basilic vein and the palpable brachial pulse. The basilic vein was dissected free circumferentially, marked for orientation, and ligated and divided distally. The basilic vein was spatulated and easily accepted up to 3-1/ 2 cm cardiac dilator. This was flushed with heparinized saline and clamped with a bulldog clamp. The brachial artery was then dissected free and found to be of adequate quality and caliber to support a fistula. Heparin was administered systemically and allowed to circulate for 3 minutes following which the brachial artery was clamped proximally and distally. An anterior arteriotomy was created with an 11 blade scalpel and extended with Manning scissors. An end- to-side anastomosis created with a running 6-0 Prolene suture with excellent technical result. Prior to tying down the anastomosis, the inflow was released to flush the anastomosis. Flow was established first through the fistula and then through the distal brachial artery. Hemostasis at the site was confirmed, and an excellent thrill was felt in the basilic vein outflow and an excellent bruit was heard with Doppler as well up to the proximal medial arm. Hemostasis at the operative site was again confirmed. All 3 skin incisions were closed with running 3-0 subcutaneous and running 4-0 subcuticular Monocryl sutures. Dermabond dressings were placed and the patient was taken to the recovery room in good condition. Estimated blood loss was minimal. There were no complications. There were no specimens.
== END 2017-09-14 20:55 | disposition left against medical advice (07) | DRG 264 ==
LOC: SDC 09:59 → T4-B 19:04
PROVIDERS: ADMIT Internal Medicine Nephrology; ATTEND Surgery
PROC: 03180ZD Bypass Left Brachial Artery to Upper Arm Vein, Open Approach (ICD-10-PCS; principal; 2017-09-14)
DX: I13.2 Hypertensive heart and chronic kidney disease with heart failure and with stage 5 chronic kidney disease, or end stage renal disease (principal); N18.6 End stage renal disease; I50.42 Chronic combined systolic (congestive) and diastolic (congestive) heart failure; Z99.2 Dependence on renal dialysis; D63.1 Anemia in chronic kidney disease; Z53.21 Procedure and treatment not carried out due to patient leaving prior to being seen by health care provider
CPT/HCPCS: 80048; 85025; J1644; J2001; J2405; J2704; J2720; J3010; S0020

== ENCOUNTER 2017-09-27 08:54 | Day surgery (SDC) | payer OTHER ==
[2017-09-27] MEDS ORDERED: diphenhydrAMINE 50 MG CAP PO SCH (09:30)
[2017-09-27] MEDS ORDERED: Acetaminophen 325 MG TAB PO SCH (09:30)
[2017-09-27] MEDS ORDERED: Sodium Chloride 0.9% 20 ML ONE (10:41)
[2017-09-27 18:31] VITALS: BP 151/99; TEMP 98.7
[2017-09-27 19:11] LABS: Hematocrit 28.9 % (42.0-52.0)
== END 2017-09-27 19:24 | disposition home or self-care (01) ==
LOC: ONC/OP 08:54
PROVIDERS: ATTEND Internal Medicine Nephrology
PROC: 30233N1 Transfusion of Nonautologous Red Blood Cells into Peripheral Vein, Percutaneous Approach (ICD-10-PCS; principal; 2017-09-27)
DX: N18.6 End stage renal disease (principal); D63.1 Anemia in chronic kidney disease; F17.200 Nicotine dependence, unspecified, uncomplicated; Z91.018 Allergy to other foods; Z99.2 Dependence on renal dialysis
CPT/HCPCS: 36415; 36430; 85014; 85018; 86850; 86900; 86901; A4216; P9016

== ENCOUNTER 2017-10-15 15:43 | Inpatient (IN) | payer MEDICAID, OTHER ==
[2017-10-15 17:05] LABS: Bilirubin Negative (Negative); Blood, Urine Negative (Negative); Glucose, Urine (Dipstick) Negative (Negative); Ketone, Urine Negative (Negative); Nitrite Negative (Negative); Protein, Urine (Dipstick) 300 mg/dL (Neg-Trace)
[2017-10-15 17:07] LABS: Bacteria/HPF None Seen HPF (None Seen); Hyaline Casts/LPF 0-3 HYALINE CAST LPF (0-3 Hyaline); RBC/HPF 0-3 HPF (0-3); Squamous Epithelial None Seen HPF (0-3); WBC/HPF 0-3 HPF (0-3)
[2017-10-15 17:24] LABS: #Eosinphils 0.1 thou/uL (0.0-0.7); #Lymphocytes 1.2 thou/uL (1.20-3.40); #Monocytes 0.8 thou/uL (0.11-0.59); #Neutrophils 7.2 thou/uL (1.40-6.50); %Basophils 0.2 % (0.0-1.0); %Eosinophils 1.1 % (0.0-10.0); %Lymphocytes 12.8 % (21.0-51.0); Hematocrit 33.8 % (42.0-52.0); Mean Platelet Volume 10.4 fL (7.4-10.4); Red Blood Cell (RBC) Count 3.81 mill/uL (4.70-6.10); White Blood Cell (WBC) Count 9.3 thou/uL (4.8-10.8)
[2017-10-15] MEDS ORDERED: Acetaminophen 500 MG TAB ONE (17:25)
--- NOTE | 2017-10-15 17:29 | RAD ---
PORTABLE CHEST: History: Cough. Comparison: 09-07-17 FINDINGS: Lungs are well aerated. There is questioned density obscuring portions of the right hemidiaphragm. Th is could potentially represent a right basilar infiltrate. The lungs otherwise appear clear with no other evidence of infiltrate. Heart size is mildly prominent but stable. No evidence of vascular congestion. Central line is again seen overlying the SVC. IMPRESSION: Question density obscuring the right hemidiaphragm. A right basilar infiltrate cannot be excluded. Re commend upright PA and lateral views of the chest to better evaluate the right lung base. POS: [facility]
[2017-10-15 17:37] LABS: Lactic Acid - Sepsis 1.9 mmol/L (0.5-2.2)
[2017-10-15 17:52] LABS: ALT (SGPT) 13 U/L (8-55); AST (SGOT) 24 U/L (5-34); Alkaline Phosphatase 127 U/L (40-150); Anion Gap 16 mmol/L (10-20); BUN (Urea Nitrogen) 44 mg/dL (8.9-20.6); Bilirubin, Total 0.3 mg/dL (0.2-1.2); Calc. Creatinine Clearance 0 mL/min (70-130); Calcium 8.5 mg/dL (7.8-10.44); Carbon Dioxide 18 mmol/L (22-29); Chloride 107 mmol/L (98-107); Estimated GFR-MDRD 18; Globulin 5.6 g/dL (2.4-3.5); Protein, Total 8.7 g/dL (6.0-8.3)
--- NOTE | 2017-10-15 19:40 | RAD ---
PA AND LATERAL CHEST: History: Fever. FINDINGS: There was question of infiltrate seen on the portable chest film at 5:23 p.m. On the PA view, the questioned infiltrate in the right lung base is not apparent. Hemidiaphragm is sh trupti on the PA and lateral projections. The heart size is upper normal with mild vascular prominence. The dual-lumen central line overlies the SVC as noted previously. IMPRESSION: No evidence of infiltrate seen on PA and lateral exam. POS: [facility]
[2017-10-15] MEDS ORDERED: Bisacodyl 5 MG TAB PO PRN (21:15)
[2017-10-15] MEDS ORDERED: Ondansetron ODT 4 MG TAB PO PRN (21:15)
[2017-10-15] MEDS ORDERED: Ondansetron HCl/PF 4 MG/2 ML Vial IVP PRN (21:15)
[2017-10-15] MEDS: Sodium Chloride 0.9% 1,000 ML IV SCH ×2 (22:16→23:38)
[2017-10-15] MEDS ORDERED: Oseltamivir 75 MG CAP PO SCH (22:45)
[2017-10-16 01:00] LABS: Sodium 140 mmol/L (135-148)
[2017-10-16 01:01] LABS: Modified Allen's Test POSITIVE; Vent NO
[2017-10-16 02:13] LABS: Amphetamine Not Detected (NotDetected); Methadone Not Detected (NotDetected); Methamphetamine Not Detected (NotDetected)
[2017-10-16 04:38] LABS: #Eosinphils 0.1 thou/uL (0.0-0.7); #Lymphocytes 1.3 thou/uL (1.20-3.40); #Neutrophils 5.1 thou/uL (1.40-6.50); %Basophils 0.1 % (0.0-1.0); %Eosinophils 1.2 % (0.0-10.0); %Lymphocytes 17.6 % (21.0-51.0); %Monocytes 12.9 % (0.0-10.0); Hematocrit 28.8 % (42.0-52.0); Mean Platelet Volume 11.5 fL (7.4-10.4); Red Blood Cell (RBC) Count 3.25 mill/uL (4.70-6.10); White Blood Cell (WBC) Count 7.5 thou/uL (4.8-10.8)
[2017-10-16 04:48] LABS: Anion Gap 12 mmol/L (10-20); BUN (Urea Nitrogen) 43 mg/dL (8.9-20.6); Calc. Creatinine Clearance 0 mL/min (70-130); Calcium 7.7 mg/dL (7.8-10.44); Carbon Dioxide 19 mmol/L (22-29); Chloride 110 mmol/L (98-107); Estimated GFR-MDRD 18
--- NOTE | 2017-10-16 05:42 | HP ---
PRIMARY TURNER OFF: Augusta Coates M.D. CHIEF COMPLAINT: Chills and cough. HISTORY OF PRESENT ILLNESS: This is a 47-year-old -Luxembourger male with a known history of end- stage renal disease on dialysis 3 times a week, who has missed his dialysis for the last week and a h murtaza. He reports that for the past day he started having rhinorrhea, cough, diarrhea, and having chil ls. He called Dr. Deras about the symptoms and he was told to go to the emergency room for eval uation. In the ER, the patient was found to be severely febrile at 103 and tachycardic with pulse in the 135s. He was remainder of his blood work looked okay. No hyperkalemia, no leukocytosis. He sinclair d a chest x-ray that did not show any infiltrates and his blood pressure has been stable in the emerg ency room. Patient was given Tylenol in the emergency room along with a liter of normal saline and h e has been put in observation due to his abnormal vital signs and severity of his influenza as well a s we will need dialysis tomorrow. PAST MEDICAL HISTORY: 1. End-stage renal disease, on hemodialysis. 2. Hypertension. 3. Chronic systolic and diastolic congestive heart failure with an ejection fraction of 40-45%. 4. Medication noncompliance. 5. History of inguinal hernia. 6. Chronic microcytic anemia. PAST SURGICAL HISTORY: 1. Status post AV fistula placement. 2. Bilateral inguinal hernia repair in 2017. ALLERGIES: TEA. FAMILY HISTORY: Positive for hypertension. SOCIAL HISTORY: The patient lives with his family in [place], [place]. He is a longstanding abuser of candie barrera. He smokes several cigarettes per day, but not real regularly. Occasional alcohol use. CURRENT MEDICATIONS: 1. Amlodipine 5 mg daily. 2. Isosorbide mononitrate extended release 30 mg daily. 3. Furosemide 40 mg daily. 4. Hydralazine 25 mg twice a day. 5. Aspirin 81 mg daily. 6. Metoprolol tartrate 25 mg twice a day. 7. Clonidine 0.1 mg 3 times a day. REVIEW OF SYSTEMS: The patient is fairly somnolent at this point and hard to get a review of systems so this may not be completely accurate as he was not interested in answering the questions, but rath er sleeping at this time. CONSTITUTIONAL: No fevers that he had noticed, but he had chills at home. EYES: No double vision or blurred vision. ENT: He has had some nasal congestion and runny nose, n o sore throat. CARDIOVASCULAR: No chest pain, no palpitations or racing heart. PULMONARY: Coughin g, but without wheezing or chest tightness. GASTROINTESTINAL: No abdominal pain, no nausea or vomit ing. He has had diarrhea without blood or mucus in it and no constipation. GENITOURINARY: He is st ill producing some urine, has been clear without any blood and no dysuria. MUSCULOSKELETAL: The pat mat has some chronic right shoulder and neck pain from an accident, but no new symptoms. SKIN: No rashes or other lesions noted. NEUROLOGIC: No numbness, tingling or focal weakness. PHYSICAL EXAMINATION: VITAL SIGNS: Blood pressure 121/76, pulse 113, respirations 20, temperature currently 100.3, and O2 sat between 93% and 98% on room air. GENERAL: This is a well-developed, well-nourished -Luxembourger male, who is lethargic, am able t o arouse him and get him to answer questions with constant stimulation, but otherwise he falls back a sleep. EYES: Pupils equal, round, and reactive to light. He does appear to have a slightly disconjugate ga ze. ENT: Oropharynx clear without lesions, erythema or exudate. NECK: Supple, no lymphadenopathy, no thyroid nodules or enlargement, no JVD. HEART: Regular rate and rhythm, no murmurs, rubs or gallops. LUNGS: Clear to auscultation bilaterally, no wheezes, crackles or rhonchi. ABDOMEN: Soft, nontender to palpation, normoactive bowel sounds, no hepatosplenomegaly or other mass es. EXTREMITIES: Without clubbing, cyanosis or edema. SKIN: No rashes or other lesions noted. NEUROLOGIC: He is lazy, otherwise cranial nerves are intact and equal bilaterally without facial rosy op. He is moving all extremities equally and with intact reflexes in all extremities. LABORATORY: White blood cell count 9.3, hemoglobin 10.4, which is actually significantly improved fo r him, usually goes in 6-8 range. Platelet count 176. Complete metabolic panel notable for carbon d ioxide of 18, BUN of 44 and a creatinine of 4.34, glucose is a little low at 69. Albumin is 3.1. Th e remainder is normal. Urinalysis just shows 300 protein. No evidence of infection. Chest x-ray: I did review the chest x-ray PA and lateral along with the radiologist's report it shows no evidence for infiltrate or other cardiopulmonary abnormality. Patient is positive for flu B. ASSESSMENT AND PLAN: 1. Influenza B. We will start patient on Tamiflu twice a day. He has predisposing conditions, his end-stage renal disease for severe infection. 2. Sepsis with patient's severe tachycardia and hyperthermia. We will observe in the hospital overn ight. He will also get dialysis in the morning. 3. Dehydration. The patient appears dehydrated on presentation, he is better after a liter of fluid . We will give fluids overnight. We will need to watch carefully for volume overload with his end-s tage renal disease and history of congestive heart failure, but at this time, he still appears a latoya le dry. 4. Gastrointestinal prophylaxis. We will put the patient on Pepcid twice a day. 5. Deep venous thrombosis prophylaxis. Patient on sequential compression devices and TEDs while he is in bed. 6. History of tobacco and cocaine abuse. 7. End-stage renal disease. Patient will receive dialysis in the morning. No volume overload curre ntly. No hyperkalemia. CODE STATUS: Patient is a FULL CODE. Should he be incapacitated, he states that his mother would be his power of senior trial attorney, her name is Manju Stallings/Tariq.
[2017-10-16] MEDS: Acetaminophen 325 MG TAB PO PRN ×2 (06:01→20:36)
[2017-10-16] MEDS: Oseltamivir 75 MG CAP PO SCH (08:37)
[2017-10-16] MEDS: Amlodipine 5 MG TAB PO SCH (08:38)
[2017-10-16] MEDS: Famotidine 20 MG TAB PO SCH (08:39)
[2017-10-16] MEDS: Metoprolol Tartrate 50 MG TAB PO SCH ×2 (08:39→20:37)
[2017-10-16] MEDS ORDERED: Metoprolol Tartrate 50 MG TAB PO SCH (09:00)
[2017-10-16] MEDS ORDERED: Oseltamivir 75 MG CAP PO SCH (09:00)
[2017-10-16] MEDS ORDERED: hydrALAZINE 25 MG TAB PO SCH (09:00)
[2017-10-16] MEDS ORDERED: cloNIDine 0.1 MG TAB PO SCH (09:00)
[2017-10-16] MEDS ORDERED: Heparin 10,000 UNITS/ 10 ML VIAL ONE (10:00)
--- NOTE | 2017-10-16 12:47 | PDOC.PN ---
- Subjective Encounter Start Date: 10/16/17 Encounter Start Time: 08:30 -: old records requested/rev Patient seen and examined. No new complaints. No overnight events,, has tachycardia but not symptomatic - Objective MAR Reviewed: Yes Vital Signs & Weight: Vital Signs (12 hours) Temp Pulse Resp BP BP Pulse Ox 10/16/17 08:39 128 H 148/89 H 10/16/17 08:38 128 H 148/89 H 10/16/17 08:00 99.5 F 128 H 15 148/89 H 96 10/16/17 05:00 100.6 F H 134 H 20 150/83 H 97 Result Diagrams: 10/16/17 03:56 10/16/17 03:56 Phys Exam - Physical Examination Constitutional: NAD HEENT: PERRLA, moist MMs, sclera anicteric Neck: no JVD, supple Respiratory: no wheezing, no rales, no rhonchi Cardiovascular: RRR, no significant murmur, no rub tachycardia Gastrointestinal: soft, non-tender, no distention, positive bowel sounds Musculoskeletal: no edema, pulses present Neurological: non-focal, normal sensation, moves all 4 limbs Psychiatric: normal affect, A&O x 3 Skin: no rash, normal turgor Dx/Plan (1) Cocaine abuse Code(s): F14.10 - COCAINE ABUSE, UNCOMPLICATED Status: Acute (2) Dehydration Code(s): E86.0 - DEHYDRATION Status: Resolved (3) Influenza B Code(s): J10.1 - FLU DUE TO OTH IDENT INFLUENZA VIRUS W OTH RESP MANIFEST Status: Acute (4) Sepsis Code(s): A41.9 - SEPSIS, UNSPECIFIED ORGANISM Status: Acute (5) Chronic combined systolic and diastolic CHF (congestive heart failure) Code(s): I50.42 - CHRONIC COMBINED SYSTOLIC AND DIASTOLIC HRT FAIL Status: Chronic (6) ESRD (end stage renal disease) on dialysis Code(s): N18.6 - END STAGE RENAL DISEASE; Z99.2 - DEPENDENCE ON RENAL DIALYSIS Status: Chronic Comment: (7) Polysubstance abuse Code(s): F19.10 - OTHER PSYCHOACTIVE SUBSTANCE ABUSE, UNCOMPLICATED Status: Chronic Comment: (8) Tobacco dependence Code(s): F17.200 - NICOTINE DEPENDENCE, UNSPECIFIED, UNCOMPLICATED Status: Chronic - Plan cont current plan of care, continue antibiotics * continue tamiflu as per renal dose * today HD * tachycardia due to coccaine * counselled to avoid smoking and coccain abuse * medication reviewed as below * symptomatic treatment. * possible discharge today or tomorrow Review of Systems - Review of Systems ENT: negative: Ear Pain, Ear Discharge, Nose Pain, Nose Discharge, Nose Congestion, Mouth Pain, Mouth Swelling, Throat Pain, Throat Swelling, Other Respiratory: negative: Cough, Dry, Shortness of Breath, Hemoptysis, SOB with Excertion, Pleuritic Pain, Sputum, Wheezing Cardiovascular: negative: Chest Pain, Palpitations, Orthopnea, Paroxysmal Noc. Dyspnea, Edema, Light Headedness, Other Gastrointestinal: negative: Nausea, Vomiting, Abdominal Pain, Diarrhea, Constipation, Melena, Hematochezia, Other Genitourinary: negative: Dysuria, Frequency, Incontinence, Hematuria, Retention , Other Musculoskeletal: negative: Neck Pain, Shoulder Pain, Arm Pain, Back Pain, Hand Pain, Leg Pain, Foot Pain, Other - Medications/Allergies Allergies/Adverse Reactions: Allergies Allergy/AdvReac Type Severity Reaction Status Date / Time tea Allergy rash, Uncoded 10/15/17 21:59 nausea Medications: Current Medications Acetaminophen (Tylenol) 650 mg PO Q4H PRN PRN Reason: Headache/Fever or Pain Last Admin: 10/16/17 06:01 Dose: 650 mg Amlodipine Besylate (Norvasc) 5 mg PO DAILY [facility] Last Admin: 10/16/17 08:38 Dose: 5 mg Aspirin (Aspirin Chewable) 81 mg PO DAILY [facility] Last Admin: 10/16/17 08:38 Dose: 81 mg Bisacodyl (Dulcolax) 10 mg PO DAILYPRN PRN PRN Reason: Constipation Famotidine (Pepcid) 20 mg PO DAILY [facility] Last Admin: 10/16/17 08:39 Dose: 20 mg Isosorbide Mononitrate (Imdur Er) 30 mg PO QAM [facility] Last Admin: 10/16/17 08:37 Dose: 30 mg Metoprolol Tartrate (Lopressor) 50 mg PO BID [facility] Last Admin: 10/16/17 08:39 Dose: 50 mg Ondansetron HCl (Zofran Odt) 4 mg PO Q6H PRN PRN Reason: Nausea/Vomiting Ondansetron HCl (Zofran) 4 mg IVP Q6H PRN PRN Reason: Nausea/Vomiting Oseltamivir Phosphate (Tamiflu) 75 mg PO DAILY [facility] Stop: 10/25/17 09:01 Last Admin: 10/16/17 08:37 Dose: 75 mg Sodium Chloride (Flush - Normal Saline) 10 ml IVF Q12HR [facility] Last Admin: 10/16/17 08:47 Dose: Not Given Sodium Chloride (Flush - Normal Saline) 10 ml IVF PRN PRN PRN Reason: Saline Flush
[2017-10-16] MEDS ORDERED: Labetalol HCl 100 MG/20 ML VIAL SLOW IVP PRN (15:22)
[2017-10-16] MEDS ORDERED: cloNIDine 0.1 MG TAB PO PRN (15:22)
[2017-10-16] MEDS: cloNIDine 0.1 MG TAB PO SCH (20:36)
--- NOTE | 2017-10-16 20:52 | CON ---
DATE OF CONSULTATION: 10/16/2017 CONSULTING PHYSICIAN: Dr. Augusta Coates. REQUESTING PHYSICIAN: ER physician. REASON FOR CONSULTATION: The need for maintenance hemodialysis. IMPRESSION: 1. End-stage renal disease, hemodialysis dependent. 2. Medical noncompliance. 3. Febrile illness, query cause. 4. Metabolic acidosis in the context of problem #1 above. PLAN: 1. The patient to be dialyzed in accordance with his schedule. Therefore, patient to receive dialys is today given adjustment in the schedule with minimal ultrafiltration given the fact that patient sinclair d recent diarrhea that likely gotten intravascularly depleted. 2. Further management will be dependent on a clinical course. HISTORY OF PRESENT ILLNESS: History is that of a 47-year-old gentleman who has been on hemodialysis, but has a lots of issues with compliance, having missed few dialysis session. The patient presented here with fever, chills and cough with recent history of diarrhea in the context of a colonoscopy. In any case, the patient was found to have a temperature of up to 103 and eventually been admitted fo r further workup. PAST MEDICAL HISTORY: Significant for end-stage renal disease, hypertension, chronic systolic and di astolic failure, history of giant inguinal scrotal hernia, severe anemia, status post blood transfusi on. MEDICATIONS: Reviewed as documented on [employer]. ALLERGIES: To TEA. FAMILY HISTORY: Significant for high blood pressure. SOCIAL HISTORY: The patient continues to abuse cocaine use. He uses cigarettes and no significant a lcohol consumption. REVIEW OF SYSTEMS: As documented in the body of the history. The other systems were reviewed and we re found not to be significantly related to the presenting illness.. PHYSICAL EXAMINATION: GENERAL: On examination, the patient was found to be ill-looking and noted with the following. VITAL SIGNS: Afebrile with a temperature of 99.5, but the maximum temperature on presentation was 10 3, pulse of 128, blood pressure of 148/89, respiratory rate of 15 and O2 sat 96%. HEENT: Unremarkable with moist oral mucosa. No conjunctival injection or icterus. NECK: Supple. CARDIOVASCULAR SYSTEM: First and second heart sounds were heard. RESPIRATORY SYSTEM: Clear to auscultation. DIGESTIVE SYSTEM: Revealed a benign abdomen. EXTREMITIES: No peripheral edema. SKIN: No new gross rash. LYMPHATICS: No peripheral lymphadenopathy. SUMMARY: A 47-year-old gentleman with end-stage renal disease, hemodialysis dependent, who presented here with febrile illness, cough and chills. Thank you for this consultation. We will follow with you.
[2017-10-17 05:08] LABS: #Lymphocytes 1.3 thou/uL (1.20-3.40); #Monocytes 0.8 thou/uL (0.11-0.59); #Neutrophils 3.9 thou/uL (1.40-6.50); %Basophils 0.7 % (0.0-1.0); %Eosinophils 0.7 % (0.0-10.0); %Lymphocytes 21.7 % (21.0-51.0); %Monocytes 12.6 % (0.0-10.0); Mean Platelet Volume 9.7 fL (7.4-10.4); White Blood Cell (WBC) Count 6.1 thou/uL (4.8-10.8)
[2017-10-17 05:28] LABS: ALT (SGPT) 7 U/L (8-55); AST (SGOT) 20 U/L (5-34); Alkaline Phosphatase 87 U/L (40-150); Anion Gap 12 mmol/L (10-20); BUN (Urea Nitrogen) 27 mg/dL (8.9-20.6); Bilirubin, Total 0.4 mg/dL (0.2-1.2); Calc. Creatinine Clearance 39 mL/min (70-130); Calcium 7.9 mg/dL (7.8-10.44); Carbon Dioxide 24 mmol/L (22-29); Chloride 107 mmol/L (98-107); Estimated GFR-MDRD 25; Globulin 4.3 g/dL (2.4-3.5); Protein, Total 6.6 g/dL (6.0-8.3)
[2017-10-17] MEDS: Famotidine 20 MG TAB PO SCH (08:18)
[2017-10-17] MEDS: cloNIDine 0.1 MG TAB PO SCH (08:18)
[2017-10-17] MEDS: Oseltamivir 75 MG CAP PO SCH (08:18)
[2017-10-17] MEDS: Amlodipine 5 MG TAB PO SCH (08:18)
[2017-10-17] MEDS: Metoprolol Tartrate 50 MG TAB PO SCH (08:18)
[2017-10-17 11:35] VITALS: BMI 26.4
--- NOTE | 2017-10-17 12:23 | PDOC.PN ---
- Subjective Encounter Start Date: 10/17/17 Encounter Start Time: 09:00 Patient seen and examined. No new complaints. No overnight events - Objective MAR Reviewed: Yes Vital Signs & Weight: Vital Signs (12 hours) Temp Pulse Resp BP BP Pulse Ox 10/17/17 08:18 100 134/85 10/17/17 08:00 98.8 F 100 20 10/17/17 07:33 98.8 F 100 20 134/85 98 10/17/17 06:02 95 20 93 L 10/17/17 05:18 99 F 93 18 110/76 91 L Weight Admit Weight 217 lb Weight 179 lb Result Diagrams: 10/17/17 04:36 10/17/17 04:36 Phys Exam - Physical Examination Constitutional: NAD HEENT: PERRLA, moist MMs, sclera anicteric Neck: no JVD, supple Respiratory: no wheezing, no rales, no rhonchi Cardiovascular: RRR, no significant murmur, no rub Gastrointestinal: soft, non-tender, no distention, positive bowel sounds Musculoskeletal: no edema, pulses present Neurological: non-focal, normal sensation Psychiatric: normal affect, A&O x 3 Skin: no rash, normal turgor Dx/Plan (1) Cocaine abuse Code(s): F14.10 - COCAINE ABUSE, UNCOMPLICATED Status: Acute (2) Dehydration Code(s): E86.0 - DEHYDRATION Status: Resolved (3) Influenza B Code(s): J10.1 - FLU DUE TO OTH IDENT INFLUENZA VIRUS W OTH RESP MANIFEST Status: Acute (4) Sepsis Code(s): A41.9 - SEPSIS, UNSPECIFIED ORGANISM Status: Acute (5) Chronic combined systolic and diastolic CHF (congestive heart failure) Code(s): I50.42 - CHRONIC COMBINED SYSTOLIC AND DIASTOLIC HRT FAIL Status: Chronic (6) ESRD (end stage renal disease) on dialysis Code(s): N18.6 - END STAGE RENAL DISEASE; Z99.2 - DEPENDENCE ON RENAL DIALYSIS Status: Chronic Comment: (7) Polysubstance abuse Code(s): F19.10 - OTHER PSYCHOACTIVE SUBSTANCE ABUSE, UNCOMPLICATED Status: Chronic Comment: (8) Tobacco dependence Code(s): F17.200 - NICOTINE DEPENDENCE, UNSPECIFIED, UNCOMPLICATED Status: Chronic - Plan cont current plan of care, plan discussed w/ family * dc metoprolol due to coccaine abuse * add labetolol * change amlodipine 10 mg * medication reviewed as below * symptomatic treatment * spoke with nephrology, pt will need HD today. Review of Systems - Review of Systems ENT: negative: Ear Pain, Ear Discharge, Nose Pain, Nose Discharge, Nose Congestion, Mouth Pain, Mouth Swelling, Throat Pain, Throat Swelling, Other Respiratory: negative: Cough, Dry, Shortness of Breath, Hemoptysis, SOB with Excertion, Pleuritic Pain, Sputum, Wheezing Cardiovascular: negative: Chest Pain, Palpitations, Orthopnea, Paroxysmal Noc. Dyspnea, Edema, Light Headedness, Other Gastrointestinal: negative: Nausea, Vomiting, Abdominal Pain, Diarrhea, Constipation, Melena, Hematochezia, Other Genitourinary: negative: Dysuria, Frequency, Incontinence, Hematuria, Retention , Other Musculoskeletal: negative: Neck Pain, Shoulder Pain, Arm Pain, Back Pain, Hand Pain, Leg Pain, Foot Pain, Other - Medications/Allergies Allergies/Adverse Reactions: Allergies Allergy/AdvReac Type Severity Reaction Status Date / Time tea Allergy rash, Uncoded 10/15/17 21:59 nausea Medications: Current Medications Acetaminophen (Tylenol) 650 mg PO Q4H PRN PRN Reason: Headache/Fever or Pain Last Admin: 10/16/17 20:36 Dose: 650 mg Amlodipine Besylate (Norvasc) 10 mg PO DAILY [facility] Aspirin (Aspirin Chewable) 81 mg PO DAILY [facility] Last Admin: 10/17/17 08:18 Dose: 81 mg Bisacodyl (Dulcolax) 10 mg PO DAILYPRN PRN PRN Reason: Constipation Clonidine (Catapres) 0.1 mg PO Q4H PRN PRN Reason: SBP GREATER THAN 160 Clonidine (Catapres) 0.1 mg PO TID [facility] Last Admin: 10/17/17 08:18 Dose: Not Given Famotidine (Pepcid) 20 mg PO DAILY [facility] Last Admin: 10/17/17 08:18 Dose: 20 mg Isosorbide Mononitrate (Imdur Er) 30 mg PO QAM [facility] Last Admin: 10/17/17 08:18 Dose: 30 mg Labetalol HCl (Normodyne) 10 mg SLOW IVP Q2H PRN PRN Reason: SBP GREATER THAN 160 Labetalol HCl (Normodyne) 100 mg PO BID [facility] Ondansetron HCl (Zofran Odt) 4 mg PO Q6H PRN PRN Reason: Nausea/Vomiting Ondansetron HCl (Zofran) 4 mg IVP Q6H PRN PRN Reason: Nausea/Vomiting Oseltamivir Phosphate (Tamiflu) 75 mg PO DAILY [facility] Stop: 10/25/17 09:01 Last Admin: 10/17/17 08:18 Dose: 75 mg Sodium Chloride (Flush - Normal Saline) 10 ml IVF Q12HR [facility] Last Admin: 10/17/17 08:23 Dose: 10 ml Sodium Chloride (Flush - Normal Saline) 10 ml IVF PRN PRN PRN Reason: Saline Flush
[2017-10-17 13:19] VITALS: BP 127/85; TEMP 99.8
[2017-10-17] MEDS: Acetaminophen 325 MG TAB PO PRN (14:19)
[2017-10-17] MEDS ORDERED: Labetalol HCl 100 MG TAB PO SCH (21:00)
[2017-10-18] MEDS ORDERED: Amlodipine 10 MG TAB PO SCH (09:00)
--- NOTE | 2017-10-18 12:37 | DIS ---
PRIMARY CARE PHYSICIAN: [facility] [employer]. DATE OF ADMISSION: 10/15/2017 DATE OF DISCHARGE: 10/17/2017 DISCHARGE DISPOSITION: Home. PRIMARY DISCHARGE DIAGNOSES: 1. Cocaine abuse. 2. Influenza B. 3. Sepsis. 4. Dehydration. SECONDARY DISCHARGE DIAGNOSES: Tobacco dependence, polysubstance abuse, end-stage renal disease on h emodialysis, chronic systolic and diastolic heart failure. PRIMARY PROCEDURE/OPERATION: None. RADIOLOGICAL INVESTIGATION: Chest x-ray. SIGNIFICANT LABS: WBC 6.1, hemoglobin 9.0, platelets 142. Sodium 139, potassium 4.1, creatinine 3.2 9. LFTs normal. Lactic acid 1.4. Urinalysis normal. Urine drug screen positive for cocaine. Hepa titis B surface antigen negative. Influenza B positive. Blood culture negative. Urine culture nega tive. DISCHARGE MEDICATIONS: Amlodipine 10 mg p.o. daily, aspirin 81 mg p.o. daily, clonidine 0.1 mg t.i.d ., Imdur 30 mg p.o. daily, labetalol 100 mg twice daily, and Tamiflu 45 mg p.o. daily for 5 more days . CONTRAINDICATIONS: None. CODE STATUS: FULL CODE. INPATIENT CONSULTANTS: Dr. Deras. TEST RESULTS PENDING ON DISCHARGE: None. ALLERGIES: No known drug allergies. DISCHARGE PLAN: Post hospital, the patient will follow up with Dr. Deras and [facility] [employer]. HOSPITAL COURSE: A 47-year-old male, who was admitted by Dr. Nathaniel Zayas. The patient was having uppe r respiratory and lower respiratory symptoms. The patient had tachycardia. He was clinically appear ed dehydrated. He was admitted to the hospital. He was positive for influenza B. He was given Brandi flu as per renal dose. On the day of admission and next day, the patient was severely tachycardic an d he was having ongoing fever and that is why we changed to inpatient status for sepsis. He was give n gentle IV fluid and his dehydration was corrected. On the day of admission, the patient had dialys is, but fluid was not removed and that is why the next day the patient was recommended to get dialysi s, but he refused. The patient wanted to go home. He is currently stable. His heart rate is under control. He is afeb rile. We provided counseling to avoid tobacco and cocaine abuse. We also provided counseling to ross id of tobacco and cocaine abuse. All new medication prescription given. The patient is seen and examined at bedside today. Please se e my progress note from today.
== END 2017-10-17 15:05 | disposition home or self-care (01) | DRG 871 ==
LOC: ERS 15:43 → OBSVTOIN 21:35 → T4-A 21:35
PROVIDERS: ADMIT Emergency Medicine; ATTEND Emergency Medicine
PROC: 5A1D70Z Performance of Urinary Filtration, Intermittent, Less than 6 Hours Per Day (ICD-10-PCS; principal; 2017-10-16)
DX: A41.9 Sepsis, unspecified organism (principal); N18.6 End stage renal disease; I13.2 Hypertensive heart and chronic kidney disease with heart failure and with stage 5 chronic kidney disease, or end stage renal disease; E87.2 Acidosis; I50.42 Chronic combined systolic (congestive) and diastolic (congestive) heart failure; J10.1 Influenza due to other identified influenza virus with other respiratory manifestations; E86.0 Dehydration; F14.10 Cocaine abuse, uncomplicated; F17.210 Nicotine dependence, cigarettes, uncomplicated; F19.10 Other psychoactive substance abuse, uncomplicated; Z99.2 Dependence on renal dialysis; Z91.14 Patient's other noncompliance with medication regimen; D63.1 Anemia in chronic kidney disease
CPT/HCPCS: 36415; 71010; 71020; 80048; 80053; 80306; 81003; 81015; 82805; 83605; 85025; 87040; 87086; 87340; 93005; 94760; 96360; 96361; A4216; J1644

== ENCOUNTER 2018-04-29 17:39 | Emergency (ER) | payer OTHER ==
[2018-04-29 18:32] LABS: #Eosinphils 0.2 thou/uL (0.0-0.7); #Monocytes 0.8 thou/uL (0.11-0.59); #Neutrophils 10.1 thou/uL (1.40-6.50); %Basophils 0.2 % (0.0-1.0); %Eosinophils 1.9 % (0.0-10.0); %Lymphocytes 7.9 % (21.0-51.0); %Monocytes 6.4 % (0.0-10.0); %Neutrophils 83.5 % (42.0-75.0); Hemoglobin 9.2 g/dL (14.0-18.0); Mean Corpuscular HGB CONC 31.3 g/dL (32.0-36.0); Mean Corpuscular Hemoglobin 27.6 pg (27.0-31.0); Mean Corpuscular Volume 88.4 fl (80.0-94.0); Mean Platelet Volume 9.8 fL (7.4-10.4); Platelet Count 252 thou/uL (130-400); RBC Distribution Width 21.2 % (11.5-14.5); Red Blood Cell (RBC) Count 3.32 mill/uL (4.70-6.10); White Blood Cell (WBC) Count 12.1 thou/uL (4.8-10.8)
[2018-04-29 18:56] LABS: ALT (SGPT) 72 U/L (8-55); AST (SGOT) 50 U/L (5-34); Albumin 2.8 g/dL (3.5-5.0); Alkaline Phosphatase 202 U/L (40-150); Anion Gap 17 mmol/L (10-20); BUN (Urea Nitrogen) 76 mg/dL (8.9-20.6); Bilirubin, Total 0.4 mg/dL (0.2-1.2); Calc. Creatinine Clearance 0 mL/min (70-130); Carbon Dioxide 11 mmol/L (22-29); Chloride 109 mmol/L (98-107); Estimated GFR-MDRD 13; Globulin 4.7 g/dL (2.4-3.5); Glucose 137 mg/dL (70-105); Lipase 709 U/L (8-78); Protein, Total 7.5 g/dL (6.0-8.3); Sodium 133 mmol/L (136-145)
[2018-04-29] MEDS ORDERED: hydrALAZINE 20 MG/ML VIAL ONE ×2 (19:18→19:52)
--- NOTE | 2018-05-18 17:23 | EKG ---
Test Reason : Blood Pressure : / mmHG Vent. Rate : 113 BPM Atrial Rate : 113 BPM P-R Int : 148 ms QRS Dur : 082 ms QT Int : 348 ms P-R-T Axes : 036 014 046 degrees QTc Int : 477 ms Sinus tachycardia with Premature atrial complexes Left atrial enlargement Abnormal ECG Confirmed by STEVEN Lentz, MATT ([id number]), film and video editor SILVESTRE NORTON ([id number]) on 05/18/2018 5:22:44 PM Referred By: Confirmed By:MATT HARRIS M.D.
== END 2018-04-29 20:05 | disposition left against medical advice (07) ==
LOC: ERS 17:39
DX: K85.90 Acute pancreatitis without necrosis or infection, unspecified (principal); R74.8 Abnormal levels of other serum enzymes; I13.2 Hypertensive heart and chronic kidney disease with heart failure and with stage 5 chronic kidney disease, or end stage renal disease; N18.6 End stage renal disease; I50.9 Heart failure, unspecified; F17.210 Nicotine dependence, cigarettes, uncomplicated; Z79.899 Other long term (current) drug therapy; Z79.82 Long term (current) use of aspirin
CPT/HCPCS: 80053; 83690; 85025; 93005; 96374; 96375; J0360; J2270